=== PATIENT | male | born 1945 | race Caucasian/White ===

== ENCOUNTER → 2016-02-29 | Outpatient (CLI) | payer MEDICARE, OTHER ==
[~2016-02-29] MED LIST: ASP325T; ASP325TEC PO; ATR20T PO; CLOP75TA PO; FENO145T2 PO; FRSM40T PO; METO50TA7 PO; MTF500T PO; POTA10TA6 PO; RAMI10TA PO; RT-ALBUTEROL SULF 2.5 MG/3 ML PRE-MIX VIAL INH ONE; SITA100T PO
--- OUTSIDE RECORDS SUMMARY | 2016-02-29 11:03 | XMS REPORT | Continuity of Care Document ---
Author Author [facility] Organization [facility] Address Unknown Phone Unavailable Care Team Providers Care Fence Post Cutter Name Role Phone PCP Unavailable Source Comments Some departments are not documenting in the electronic medical record. If you do not see the information that you expected, contact Release of Information in the Health Information Management department at [phone] for further assistance in locating additional records.[facility] Active Allergies and Adverse Reactions Not on File Current Medications Not on file Active Problems Not on file Social History Tobacco Use Types Packs/Day Years Used Date Never Assessed Plan of Care Health Maintenance Due Date Last Done Comments Physical (Comprehensive) 1952 Exam Pertussis Vaccine 1957 Tetanus Vaccine 1963 Colorectal Cancer 01/03/1996 Screening Shingles Vaccine 2006 Prevnar/Pneumovax (#1) 2011 Influenza Vaccine 10/25/2015 Results from Last 3 Months Not on file
== END ==
LOC: RT 11:00
PROVIDERS: ATTEND Family Medicine
DX: R06.09 Other forms of dyspnea (principal)
CPT/HCPCS: 94060; 94640; 94726; 94729

== ENCOUNTER → 2016-03-12 | Outpatient (CLI) | payer MEDICARE, OTHER ==
[~2016-03-12] MED LIST changes: -RT-ALBUTEROL SULF 2.5 MG/3 ML PRE-MIX VIAL INH ONE
--- OUTSIDE RECORDS SUMMARY | 2016-03-12 08:47 | XMS REPORT | Continuity of Care Document ---
Author Author [facility] Organization [facility] Address Unknown Phone Unavailable Care Team Providers Care Warehouse Clerk Name Role Phone PCP Unavailable Source Comments Some departments are not documenting in the electronic medical record. If you do not see the information that you expected, contact Release of Information in the Health Information Management department at [phone] for further assistance in locating additional records.[facility] Active Allergies and Adverse Reactions Not [...]
--- NOTE | 2016-03-12 09:37 | Diagnostic Imaging Report ---
PROCEDURE: CT chest without contrast. TECHNIQUE: Multiple noncontiguous 1 mm thick axial images were obtained through the chest without the use of intravenous contrast. This is performed the in the supine inspiration, expiration and prone inspiration based on a HRCT protocol, sampling images in the upper, mid and lower lung zones. Indication: Pulmonary fibrosis. COMPARISON: 08/23/2013. FINDINGS: There are bilateral small pleural effusions. There is minimal amount of fluid also along the major fissures bilaterally. There is minimal septal thickening seen with no significant fibrosis. No honeycombing. No bronchiectasis. No significant consolidation. Expiratory scan demonstrates no evidence of significant air trapping. There are nonspecific minimally prominent mediastinal lymph nodes seen including right paratracheal lymph node measuring 1.3 cm in short axis. There is evidence of prior CABG surgery and slightly prominent cardiac size. The pleural effusions and mild septal thickening could be on the basis of fluid overload or cardiac failure. There is rim calcification seen incompletely visualized within the spleen, could be sequela of an old infection and is unchanged from 2010 exam. The spleen is mildly enlarged measuring 15.5 cm in length. IMPRESSION: Bilateral small pleural effusions and minimal septal thickening mostly in the bases, may relate to volume overload and vascular congestion. No significant consolidation or interstitial lung disease otherwise. Dictated by: Dictated on workstation # [id number]
== END ==
LOC: RAD 08:44
PROVIDERS: ATTEND Internal Medicine Critical Care Medicine
DX: J84.10 Pulmonary fibrosis, unspecified (principal); R06.02 Shortness of breath
CPT/HCPCS: 71250; 94761

== ENCOUNTER 2016-08-29 11:16 | Outpatient (RCR) | payer MEDICARE, OTHER | END 2016-08-31 | disposition home or self-care (01) | LOC: CR 11:16 | PROVIDERS: ATTEND Internal Medicine Critical Care Medicine | DX: Z48.812 Encounter for surgical aftercare following surgery on the circulatory system (principal); Z95.5 Presence of coronary angioplasty implant and graft | CPT/HCPCS: 93798 ==

== ENCOUNTER 2016-09-03 11:08 | Outpatient (RCR) | payer MEDICARE, OTHER | END 2016-10-15 11:00 | disposition home or self-care (01) | LOC: CR 11:08 | PROVIDERS: ATTEND Internal Medicine Critical Care Medicine | DX: Z48.812 Encounter for surgical aftercare following surgery on the circulatory system (principal); Z95.5 Presence of coronary angioplasty implant and graft | CPT/HCPCS: 93798 ==

== ENCOUNTER 2016-09-08 11:30 | Emergency (ER) | payer MEDICARE, OTHER ==
[~2016-09-08] VITALS: Ht 172.7 cm; Wt 87.3 kg
--- NOTE | 2016-09-08 12:02 | ED Fall/Injury ---
General Chief Complaint: Trauma-Non Activation Stated Complaint: BRUISING TO RT RIBS/FALL AT HOME Nursing Triage Note: PT AMBULATED TO ROOM. PT STATES HE FELL AT HIS HOME LAST NIGHT AT 1830 WHILE TRYING TO SIT INTO A CHAIR. PT STATES HE HAD NO LOC. PT STATES HE HIS HIS NOSE AND BRUISED HIS RIBS. THERE IS A BRUISE ON PT ON HIS RIGHT LOWER ABD AT THIS TIME. PT ALSO COMPLAINS OF RIGHT LEG PAIN. NO OTHER ISSUES NOTED AT THIS TIME. Source: patient Exam Limitations: no limitations History of Present Illness Time seen by provider: 12:02 Initial Comments To ER from home with reports of a fall that occurred last night. He was on his front porch when he slipped and fell landing on his right side. He scraped the bridge of his nose which is been persistently oozing since last night despite topical liquid bandage which they purchased at [facility]. No shortness of breath or chest or abdominal pain but he does have bruising to the right side of the abdomen and pain to the anterior right proximal thigh. He is ambulatory, however, he does have to use a cane which is not typical for him. He is on Plavix. He states that he has chronic kidney disease and on the verge of requiring dialysis Location Injury Occurred: HOME Occurred: yesterday Severity: moderate Injuries/Pain Location: chest, abdomen, back Context: unknown Loss of Consciousness: no loss of consciousness Associated Symptoms (Fall): Denies Symptoms Allergies and Home Medications Allergies Coded Allergies: No Known Drug Allergies (Unverified , 12/15/08) Home Medications Aspirin 325 Mg Tabec, 325 MG PO DAILY, (Reported) Atorvastatin 20 Mg Tablet, 20 MG PO HS, (Reported) Clopidogrel Bisulfate 75 Mg Tablet, 75 MG PO DAILY, (Reported) Fenofibrate,Micronized 145 Mg Tablet, 145 MG PO HS, (Reported) Furosemide 40 Mg Tab, 40 MG PO DAILY, (Reported) Metformin Hcl 500 Mg Tablet, 1,000 MG PO BID, (Reported) Metoprolol Succinate 50 Mg Tab, 100 MG PO DAILY, (Reported) Sitagliptin Phosphate 100 Mg Tablet, 100 MG PO DAILY, (Reported) Constitutional: see HPI Eyes: No Symptoms Reported Ears, Nose, Mouth, Throat: no symptoms reported Respiratory: no symptoms reported Cardiovascular: no symptoms reported Genitourinary: no symptoms reported Musculoskeletal: no symptoms reported Skin: see HPI (abrasion to the bridge of the nose) Psychiatric/Neurological: No Symptoms Reported Past Bkfiidl-Rcamfg-Fvxick Hx Patient Social History Alcohol Use: Denies Use Recreational Drug Use: No Smoking Status: Never a Smoker 2nd Hand Smoke Exposure: No Recent Foreign Travel: No Contact w/Someone Who Travel: No Recent Infectious Disease Expo: No Recent Hopitalizations: No Seasonal Allergies Seasonal Allergies: No Respiratory Hx Respiratory Disorders: No Cardiovascular Hx Cardiac Disorders: Yes Neurological Hx Neurological Disorders: No Reproductive System Hx Reproductive Disorders: No Sexually Transmitted Disease: No Genitourinary Hx Genitourinary Disorders: Yes Gastrointestinal Hx Gastrointestinal Disorders: No Musculoskeletal Hx Musculoskeletal Disorders: Yes (LEFT SHOULDER) Endocrine Hx Endocrine Disorders: Yes Endocrine Disorders: Diabetes, Insulin dep HEENT HX ENT Disorders: No Psychosocial Hx Psychiatric Problems: No Blood Transfusions Hx Blood Disorders: No Physical Exam Vital Signs Vital Sign - Last 12Hours 09/08/16 11:40 Temp 98.1 Pulse 66 Resp 16 B/P (MAP) 121/69 Pulse Ox 98 O2 Delivery Room Air Capillary Refill : Less Than 3 Seconds General Appearance: WD/WN, no apparent distress HEENT: PERRL/EOMI, normal ENT inspection Neck: non-tender, full range of motion Cardiovascular: regular rate, rhythm, no murmur Respiratory: normal breath sounds, no respiratory distress, no accessory muscle use Gastrointestinal: normal bowel sounds, non tender, soft, No distended, No guarding, No rebound, No tenderness, other (there is a palm sized area of ecchymosis to the right lateral abdomen and one just superior to this over the lower ribs laterally on the right.However, there is absolutely no abdominal tenderness to palpation. ) Extremities: other (he does have significant tenderness over the anterior proximal right thigh but there is no swelling or ecchymosis.) Neurologic/Psychiatric: alert, normal mood/affect, oriented x 3 Skin: normal color, warm/dry Julio Cesar Coma Score Best Eye Response: (4) Open Spontaneously Best Verbal Response: (5) Oriented Best Motor Response: (6) Obeys Commands [place] Total: 15 Progress/Results/Core Measures Results/Orders Lab Results Laboratory Tests Test 09/08/16 12:03 09/08/16 12:10 Range/Units White Blood Count 5.6 4.3-11.0 10^3/uL Red Blood Count 2.86 L 4.35-5.85 10^6/uL Hemoglobin 8.4 L 13.3-17.7 G/DL Hematocrit 27 L 40-54 % Mean Corpuscular Volume 94 80-99 FL Mean Corpuscular Hemoglobin 29 25-34 PG Mean Corpuscular Hemoglobin Concent 31 L 32-36 G/DL Red Cell Distribution Width 16.1 H 10.0-14.5 % Platelet Count 115 L 130-400 10^3/uL Mean Platelet Volume 9.8 7.4-10.4 FL Neutrophils (%) (Auto) 82 H 42-75 % Lymphocytes (%) (Auto) 11 L 12-44 % Monocytes (%) (Auto) 5 0-12 % Eosinophils (%) (Auto) 1 0-10 % Basophils (%) (Auto) 0 0-10 % Neutrophils # (Auto) 4.6 1.8-7.8 X 10^3 Lymphocytes # (Auto) 0.6 L 1.0-4.0 X 10^3 Monocytes # (Auto) 0.3 0.0-1.0 X 10^3 Eosinophils # (Auto) 0.1 0.0-0.3 10^3/uL Basophils # (Auto) 0.0 0.0-0.1 10^3/uL Sodium Level 136 135-145 MMOL/L Potassium Level 4.4 3.6-5.0 MMOL/L Chloride Level 102 98-107 MMOL/L Carbon Dioxide Level 23 21-32 MMOL/L Anion Gap 11 5-14 MMOL/L Blood Urea Nitrogen 57 H 7-18 MG/DL Creatinine 2.49 H 0.60-1.30 MG/DL Estimat Glomerular Filtration Rate 26 BUN/Creatinine Ratio 23 Glucose Level 228 H 70-105 MG/DL Calcium Level 8.5 8.5-10.1 MG/DL Total Bilirubin 1.0 0.1-1.0 MG/DL Aspartate Amino Transf (AST/SGOT) 19 5-34 U/L Alanine Aminotransferase (ALT/SGPT) 18 0-55 U/L Alkaline Phosphatase 119 40-136 U/L Total Protein 6.8 6.4-8.2 GM/DL Albumin 3.4 3.2-4.5 GM/DL My Orders Orders - KASHIF PORTILLO [employer] Cbc With Automated Diff (09/08/16 11:59) Ct Chest/Abdomen/Pelvis Wo (09/08/16 11:59) Femur, Right, 2 Views (09/08/16 11:59) Ct Head Wo (09/08/16 12:02) Comprehensive Metabolic Panel (09/08/16 12:15) Vital Signs/I&O Vital Sign - Last 12Hours 09/08/16 11:40 Temp 98.1 Pulse 66 Resp 16 B/P (MAP) 121/69 Pulse Ox 98 O2 Delivery Room Air Blood Pressure Mean: 86 Diagnostic Imaging Diagonstic Imaging: CT Comments NAME: LANA BARRAZA [facility] REC#: [id number] PT STATUS: REG ER : 1945 PHYSICIAN: KASHIF PORTILLO APRN ADMIT DATE: 09/08/16/ER Draft Date of Exam:09/08/16 CT CHEST/ABDOMEN/PELVIS WO PROCEDURE: CT chest, abdomen, and pelvis without contrast. TECHNIQUE: Multiple contiguous axial images were obtained through the chest, abdomen, and pelvis without the use of intravenous contrast. INDICATION: Fall. FINDINGS: CT CHEST: There are sternotomy wires seen with a healed sternotomy noted. There are post CABG changes identified. The heart size is moderately enlarged. There is no pericardial effusion. There is no pleural effusion. The thoracic aorta is normal in caliber. There is no mediastinal mass or hematoma. There is a mildly enlarged right paratracheal lymph node measuring 1.2 cm in short axis. Another 1.2 cm infracarinal lymph node is seen. The axilla demonstrates no significantly enlarged lymph nodes on either side. The lungs demonstrate minimal emphysematous changes with no significant consolidation, contusion, or mass. The osseous structures demonstrate mild degenerative changes. CT ABDOMEN AND PELVIS: The spleen is enlarged measuring 15 cm in length. There is a 2.2 cm peripherally calcified cystic lesion, similar to the 2010 exam, compatible with the sequela of an old infection or injury. The liver has a lobulated contour, likely related to chronic underlying liver disease or cirrhosis. Correlate clinically. There are small amounts of ascites. This appears to be of simple fluid density without evidence of hematoma. There is engorgement of the upper abdominal veins. This could be related to early varices secondary to liver failure and also explain the ascites. Alternatively, this could also be secondary to liver failure. The prostate is 5.3 cm in transverse dimension which is mildly enlarged. Mild thickening of the urinary bladder wall could relate to cystitis or BPH. Cholecystectomy clips are seen. The kidneys demonstrate no hydronephrosis. The abdominal aorta is normal in caliber. No periaortic significantly enlarged lymph nodes are seen. The osseous structures demonstrate prominent degenerative changes. IMPRESSION: CT CHEST: The heart is enlarged with likely reactive mild mediastinal lymphadenopathy. No acute process. CT ABDOMEN AND PELVIS: There is small to moderate ascites, splenomegaly, and a lobulated contour of the liver, presumably secondary to chronic hepatitis or cirrhosis. There is also engorgement of the veins in the upper abdomen which might relate to varices or heart failure. The lack of contrast enhancement may decrease the sensitivity of this exam with no obvious traumatic related injury seen, however. Dictated on workstation # [id number] Dict: 09/08/16 1241 Trans: 09/08/16 1259 [id number] Interpreted by: JUDE CALLAHAN MD Electronically signed by: Departure Communication Communication Patient had labs drawn at [facility] lab last week. I did call out there at 1321. The report that the last hemoglobin was drawn on 09/03/16 and was found to be 9.7. Progress Notes 1336- I did discuss the case with trauma surgeon Dr. Parish. He has reviewed the CT scan and agrees this is likely simple fluid as it was present on his previous CT scan in February of this year. The hemoglobin drop is unrelated to trauma and likely from his chronic kidney disease and anemia of chronic disease. Impression Impression: Primary Impression: Abdominal wall contusion Additional Impressions: Chronic kidney disease Anemia Ascites Congestive heart failure Disposition: 01 HOME, SELF-CARE Condition: Stable Departure-Patient Inst. Decision time for Depature: 13:37 Referrals: WILD PARISH MD, DANIEL J MD (PCP/Family) Primary Care Physician Patient Instructions: NO INSTRUCTIONS GIVEN Add. Discharge Instructions: 1. Call Dr. Parish office today to make an appointment to be seen within this week preferably just for follow-up 2. Return to ER for any concerns 3. All discharge instructions reviewed with patient and/or family. Voiced understanding. KASHIF PORTILLO APRN Sep 08, 2016 12:02
[2016-09-08 12:14] LABS: BASOPHILS % (AUTO) 0 % (0-10); EOSINOPHILS # (AUTO) 0.1 10^3/uL (0.0-0.3); EOSINOPHILS % (AUTO) 1 % (0-10); LYMPHOCYTES # (AUTO) 0.6 X 10^3 (1.0-4.0); LYMPHOCYTES % (AUTO) 11 % (12-44); MEAN CORPUSCULAR HEMOGLOBIN 29 PG (25-34); MEAN CORPUSCULAR HGB CONC 31 G/DL (32-36); MEAN CORPUSCULAR VOLUME 94 FL (80-99); MEAN PLATELET VOLUME 9.8 FL (7.4-10.4); MONOCYTES # (AUTO) 0.3 X 10^3 (0.0-1.0); MONOCYTES % (AUTO) 5 % (0-12); NEUTROPHILS # (AUTO) 4.6 X 10^3 (1.8-7.8); NEUTROPHILS % (AUTO) 82 % (42-75); PLATELET COUNT 115 10^3/uL (130-400); RED BLOOD COUNT 2.86 10^6/uL (4.35-5.85); RED CELL DISTRIBUTION WIDTH 16.1 % (10.0-14.5); WHITE BLOOD COUNT 5.6 10^3/uL (4.3-11.0)
--- NOTE | 2016-09-08 12:36 | Diagnostic Imaging Report ---
EXAMINATION: Right femur 1236h. INDICATION: Injury, leg pain. AP and lateral views were obtained. There is no fracture, dislocation or acute bony abnormality evident. There is only mild degenerative disease involving the hip joint. The degenerative changes are similar to the prior abdomen exam of 06/19/09. There are extensive vascular calcifications in the soft tissues about the femur. The soft tissues are otherwise unremarkable. IMPRESSION: 1. There is no evidence for an acute bony abnormality. 2. There are extensive vascular calcifications in the soft tissues of the thigh. Dictated by: Dictated on workstation # [id number]
[2016-09-08 12:44] LABS: ALBUMIN 3.4 GM/DL (3.2-4.5); CALCIUM 8.5 MG/DL (8.5-10.1); CREATININE SERUM 2.49 MG/DL (0.60-1.30); POTASSIUM 4.4 MMOL/L (3.6-5.0); TOTAL PROTEIN 6.8 GM/DL (6.4-8.2)
--- NOTE | 2016-09-08 12:48 | Diagnostic Imaging Report ---
PROCEDURE: CT head without contrast. TECHNIQUE: Multiple contiguous axial images were obtained through the brain without the use of intravenous contrast. INDICATION: Fall. FINDINGS: There is no intracranial hemorrhage. There are periventricular and deep white matter hypodensities compatible with chronic microvascular ischemic changes. Potentially acute component would be better detected with MRI. There is no hydrocephalus. No extra-axial fluid collection is seen. The calvarium, the paranasal sinuses, and orbits appear grossly unremarkable. IMPRESSION: 1. No intracranial hemorrhage. 2. White hypodensities described are likely related to chronic microvascular ischemic changes. If there is suspicion of an acute component, then consider evaluation with MRI. Dictated by: Dictated on workstation # [id number]
--- NOTE | 2016-09-08 12:59 | Diagnostic Imaging Report ---
PROCEDURE: CT chest, abdomen, and pelvis without contrast. TECHNIQUE: Multiple contiguous axial images were obtained through the chest, abdomen, and pelvis without the use of intravenous contrast. INDICATION: Fall. FINDINGS: CT CHEST: There are sternotomy wires seen with a healed sternotomy noted. There are post CABG changes identified. The heart size is moderately enlarged. There is no pericardial effusion. There is no pleural effusion. The thoracic aorta is normal in caliber. There is no mediastinal mass or hematoma. There is a mildly enlarged right paratracheal lymph node measuring 1.2 cm in short axis. Another 1.2 cm infracarinal lymph node is seen. The axilla demonstrates no significantly enlarged lymph nodes on either side. The lungs demonstrate minimal emphysematous changes with no significant consolidation, contusion, or mass. The osseous structures demonstrate mild degenerative changes. CT ABDOMEN AND PELVIS: The spleen is enlarged measuring 15 cm in length. There is a 2.2 cm peripherally calcified cystic lesion, similar to the 2010 exam, compatible with the sequela of an old infection or injury. The liver has a lobulated contour, likely related to chronic underlying liver disease or cirrhosis. Correlate clinically. There are small amounts of ascites. This appears to be of simple fluid density without evidence of hematoma. There is engorgement of the upper abdominal veins. This could be related to early varices secondary to liver failure and also explain the ascites. Alternatively, this could also be secondary to liver failure. The prostate is 5.3 cm in transverse dimension which is mildly enlarged. Mild thickening of the urinary bladder wall could relate to cystitis or BPH. Cholecystectomy clips are seen. The kidneys demonstrate no hydronephrosis. The abdominal aorta is normal in caliber. No periaortic significantly enlarged lymph nodes are seen. The osseous structures demonstrate prominent degenerative changes. IMPRESSION: CT CHEST: The heart is enlarged with likely reactive mild mediastinal lymphadenopathy. No acute process. CT ABDOMEN AND PELVIS: There is small to moderate ascites, splenomegaly, and a lobulated contour of the liver, presumably secondary to chronic hepatitis or cirrhosis. There is also engorgement of the veins in the upper abdomen which might relate to varices or heart failure. The lack of contrast enhancement may decrease the sensitivity of this exam with no obvious traumatic related injury seen, however. Dictated by: Dictated on workstation # [id number]
[2016-09-08 13:47] VITALS: BP 124/72
--- OUTSIDE RECORDS SUMMARY | 2016-09-17 18:11 | XMS REPORT | Clinical Summary ---
Author Author [facility] Organization [facility] Address Unknown Phone Unavailable Care Team Providers Care Web Content Writer Name Role Phone PCP Unavailable Source Comments Some departments are not documenting in the electronic medical record. If you do not see the information that you expected, contact Release of Information in the Health Information Management department at [phone] for further assistance in locating additional records.[facility] Allergies Not on File Current Medications Not on file Active Problems Not on file Social History Tobacco Use Types Packs/Day Years Used Date Never Assessed Sex Assigned at Date Recorded Not on file Last Filed Vital Signs Not on file Plan of Treatment Health Maintenance Due Date Last Done Comments HEPATITIS C SCREENING 1945 PHYSICAL (COMPREHENSIVE) 1952 EXAM PERTUSSIS VACCINE 1957 TETANUS VACCINE 1963 COLORECTAL CANCER 01/03/1996 SCREENING SHINGLES VACCINE 2006 PREVNAR/PNEUMOVAX (#1) 2011 INFLUENZA VACCINE 10/24/2016 Results Not on filefrom Last 3 Months
== END 2016-09-08 13:47 | disposition home or self-care (01) ==
LOC: EDUNIT# 11:30 → ER 11:32
DX: S30.1XXA Contusion of abdominal wall, initial encounter (principal); E11.22 Type 2 diabetes mellitus with diabetic chronic kidney disease; N18.9 Chronic kidney disease, unspecified; R18.8 Other ascites; D64.9 Anemia, unspecified; I50.9 Heart failure, unspecified; Z79.82 Long term (current) use of aspirin; Z79.84 Long term (current) use of oral hypoglycemic drugs; W01.0XXA Fall on same level from slipping, tripping and stumbling without subsequent striking against object, initial encounter
CPT/HCPCS: 36415; 70450; 71250; 73552; 74176; 80053; 85025; 99282

== ENCOUNTER → 2016-09-10 | Outpatient (CLI) | payer MEDICARE, OTHER ==
[2016-09-10 12:41] LABS: BASOPHILS % (AUTO) 0 % (0-10); EOSINOPHILS # (AUTO) 0.1 10^3/uL (0.0-0.3); EOSINOPHILS % (AUTO) 1 % (0-10); LYMPHOCYTES # (AUTO) 0.6 X 10^3 (1.0-4.0); LYMPHOCYTES % (AUTO) 8 % (12-44); MEAN CORPUSCULAR HEMOGLOBIN 30 PG (25-34); MEAN CORPUSCULAR HGB CONC 31 G/DL (32-36); MEAN CORPUSCULAR VOLUME 96 FL (80-99); MEAN PLATELET VOLUME 9.2 FL (7.4-10.4); MONOCYTES # (AUTO) 0.5 X 10^3 (0.0-1.0); MONOCYTES % (AUTO) 8 % (0-12); NEUTROPHILS # (AUTO) 5.9 X 10^3 (1.8-7.8); NEUTROPHILS % (AUTO) 83 % (42-75); PLATELET COUNT 121 10^3/uL (130-400); RED BLOOD COUNT 2.51 10^6/uL (4.35-5.85); RED CELL DISTRIBUTION WIDTH 16.9 % (10.0-14.5); WHITE BLOOD COUNT 7.1 10^3/uL (4.3-11.0)
--- NOTE | 2016-09-10 19:10 | Diagnostic Imaging Report ---
EXAMINATION: Two views of the right hip. INDICATION: Right hip pain. FINDINGS: There is no fracture or dislocation seen. There is significant joint space narrowing in the lateral aspect of the right hip and subchondral sclerosis with mild sparing laterally. Prominent vascular calcifications are seen. IMPRESSION: [id number] right hip osteoarthritis. Dictated by: Dictated on workstation # [id number]
== END ==
LOC: RAD 12:03
PROVIDERS: ATTEND Family Medicine
DX: M16.11 Unilateral primary osteoarthritis, right hip (principal); E11.9 Type 2 diabetes mellitus without complications; D64.9 Anemia, unspecified
CPT/HCPCS: 36415; 73502; 83036; 85025

== ENCOUNTER 2016-11-14 04:18 | Emergency (ER) | payer MEDICARE, OTHER ==
[2016-11-14] VITALS (7 sets, daily range): BP systolic 112–147; BP diastolic 77–91
[~2016-11-14] VITALS: Ht 172.7 cm; Wt 93.0 kg
[2016-11-14] MEDS ORDERED: NS IV 1000 ML 1,000 ML IV ONE (04:35)
[2016-11-14] MEDS ORDERED: GABA-486 (04:37)
[2016-11-14] MEDS ORDERED: DICL100G18 TP (04:37)
[2016-11-14] MEDS ORDERED: FERR325T24 PO (04:37)
[2016-11-14] MEDS ORDERED: POTA20TA8 (04:37)
[2016-11-14] MEDS ORDERED: ALLO100T (04:37)
[2016-11-14] MEDS ORDERED: BUME2TAB3 (04:37)
[2016-11-14] MEDS ORDERED: HYDR-3923 (04:37)
[2016-11-14] MEDS ORDERED: APIX5TAB (04:37)
[2016-11-14] MEDS ORDERED: INSU100I14 (04:37)
[2016-11-14] MEDS ORDERED: SILD20TA14 (04:37)
[2016-11-14] MEDS ORDERED: CARV3.122 (04:37)
[2016-11-14] MEDS ORDERED: SERT50TA9 (04:37)
[2016-11-14] MEDS ORDERED: INSU100I10 (04:37)
[2016-11-14 04:41] LABS: BASOPHILS % (AUTO) 0 % (0-10); EOSINOPHILS # (AUTO) 0.1 10^3/uL (0.0-0.3); EOSINOPHILS % (AUTO) 1 % (0-10); LYMPHOCYTES # (AUTO) 0.8 X 10^3 (1.0-4.0); LYMPHOCYTES % (AUTO) 12 % (12-44); MEAN CORPUSCULAR HEMOGLOBIN 29 PG (25-34); MEAN CORPUSCULAR HGB CONC 31 G/DL (32-36); MEAN CORPUSCULAR VOLUME 97 FL (80-99); MONOCYTES # (AUTO) 0.5 X 10^3 (0.0-1.0); MONOCYTES % (AUTO) 7 % (0-12); NEUTROPHILS # (AUTO) 5.4 X 10^3 (1.8-7.8); NEUTROPHILS % (AUTO) 79 % (42-75); PLATELET COUNT 142 10^3/uL (130-400); RED BLOOD COUNT 2.31 10^6/uL (4.35-5.85); RED CELL DISTRIBUTION WIDTH 18.3 % (10.0-14.5); WHITE BLOOD COUNT 6.8 10^3/uL (4.3-11.0)
--- NOTE | 2016-11-14 04:42 | ED GI ---
General Chief Complaint: Abdominal/GI Problems Stated Complaint: N,V,D Source of Information: Patient History of Present Illness Time Seen By Provider: 04:24 Initial Comments PT ARRIVES VIA EMS FROM HOME C/O BLOODY DIARRHEA X 3 DAYS--STATES "SOMETIMES IT'S JUST DIARRHEA, SOMETIMES IT 'S RED" HAS BEEN INCONTINENT OF STOOL MULTIPLE TIMES HAS BEEN IN CONTINENT OF URINE TONIGHT WELL NO ABDOMINAL PAIN, JUST HAS BEEN BLOATED HAS HAD NAUSEA TONIGHT, AND HAD DRY HEAVES SEVERAL TIMES, AND VOMITED X 1--NO REPORTED HEMATEMESIS PT TAKES BOTH ELIQUIS AND PLAVIX FOR CARDIAC ISSUES--A FIB + CAD--4 VESSEL CABG + 14 STENTS DENIES HISTORY OF GI BLEEDS IN THE PAST PT STATES HE ALWAYS GETS DIZZY WHEN HE STANDS AND WILL PASS OUT IF HE WALKS TOO FAR, AND DOES NOT FEEL LIKE THIS IS ANY WORSE THAN NORMAL EMS GAVE ZOFRAN 4 MG ENROUTE AND NAUSEA IS MUCH BETTER PT HAS CHRONIC ANEMIA AND LAST THURSDAY, HE RECEIVED AN IRON INFUSION, AND HAD ONE 2 WEEKS BEFORE THAT AT [place] [facility]--STATES HIS HGB WAS 9 ON THURSDAY PCP: DR. STRONG PEDIATRIC ONCOLOGY NURSE: CATE ARTHUR CREAM CHEESE MAKER: CATE CARIAS Allergies and Home Medications Allergies Coded Allergies: No Known Drug Allergies (Unverified , 12/15/08) Home Medications Allopurinol 100 Mg Tablet, (Reported) Apixaban 5 Mg Tablet, (Reported) Atorvastatin 20 Mg Tablet, 20 MG PO HS, (Reported) Bumetanide 2 Mg Tablet, (Reported) Carvedilol 3.125 Mg Tablet, (Reported) Clopidogrel Bisulfate 75 Mg Tablet, 75 MG PO DAILY, (Reported) Diclofenac Sodium 100 Gm Gel..gram., 100 GM TP, (Reported) Ferrous Sulfate 325 Mg Tablet, 325 MG PO, (Reported) Gabapentin 100 Mg Capsule, (Reported) Hydralazine HCl 25 Mg Tablet, (Reported) Insulin Aspart 300 Units/3 Ml Solution, (Reported) Insulin Glargine,Hum.rec.anlog 100 Unit/1 Ml Insuln.pen, (Reported) Metoprolol Succinate 50 Mg Tab, 100 MG PO DAILY, (Reported) Potassium Chloride 20 Meq Tab.er.prt, (Reported) Sertraline HCl 50 Mg Tablet, (Reported) Sildenafil Citrate 20 Mg Tablet, (Reported) Review of Systems Constitutional: see HPI EENTM: No Symptoms Reported Respiratory: No Symptoms Reported Cardiovascular: No Symptoms Reported Gastrointestinal: See HPI, Abdomen Distended, Denies Abdominal Pain, Diarrhea, Nausea, Rectal Bleeding, Vomiting Genitourinary: See HPI, Incontinence Musculoskeletal: no symptoms reported Skin: no symptoms reported Psychiatric/Neurological: No Symptoms Reported Endocrine: No Symptoms Reported Hematologic/Lymphatic: See HPI Past Jtwocdi-Ytvaoc-Pcocxw Hx Patient Social History Alcohol Use: Denies Use Recreational Drug Use: No Smoking Status: Never a Smoker 2nd Hand Smoke Exposure: No Recent Foreign Travel: No Contact w/Someone Who Travel: No Recent Hopitalizations: No Seasonal Allergies Seasonal Allergies: No Surgeries History of Surgeries: Yes (4 VESSEL CABG; 14 STENTS; KIDNEY STONE REMOVAL; COLONOSCOPY/EGD) Surgeries: Abdominal, Cardiac, CABG, Coronary Stent, Gallbladder Respiratory History of Respiratory Disorde: Yes (PULMONARY FIBROSIS) Cardiovascular History of Cardiac Disorders: Yes (CHF; 4 VESSEL CABG; 14 STENTS) Cardiac Disorders: Atrial Fibrillation, Chronic Edema/Swelling, Coronary Artery Disease, High Cholesterol, Hypertension Neurological History of Neurological Disord: No Reproductive System Hx Reproductive Disorders: No Sexually Transmitted Disease: No Genitourinary History of Genitourinary Disor: Yes (NO DIALYSIS OF 11/14/16) Genitourinary Disorders: Kidney Stones, Renal Failure Gastrointestinal History of Gastrointestinal Di: No Musculoskeletal History of Musculoskeletal Dis: Yes (LEFT SHOULDER) Endocrine History of Endocrine Disorders: Yes Endocrine Disorders: Diabetes, Insulin dep HEENT History of HEENT Disorders: No Cancer History of Cancer: No Psychosocial History of Psychiatric Problem: No Integumentary History of Skin or Integumenta: No Blood Transfusions History of Blood Disorders: Yes (ANEMIA) Physical Exam Vital Signs VS - Last 72 Hours, by Label 11/14/16 11/14/16 11/14/16 11/14/16 04:30 05:00 05:25 05:45 Temp 96.9 Pulse 68 75 77 73 Resp 28 16 14 21 B/P (MAP) 128/76 129/77 112/79 141/91 Pulse Ox 97 97 98 97 O2 Delivery Room Air Room Air Room Air Room Air 11/14/16 11/14/16 11/14/16 11/14/16 06:00 06:15 06:30 06:48 Temp 96.0 96.1 Pulse 74 74 67 64 Resp 18 13 13 14 B/P (MAP) 147/90 129/86 143/84 Pulse Ox 99 100 100 100 O2 Delivery Nasal Cannula Nasal Cannula Nasal Cannula Nasal Cannula O2 Flow Rate 2.00 2.00 2.00 2.00 Capillary Refill : General Appearance: no apparent distress, obese, other (ODOR OF GI BLEED) HEENT: pale conjunctivae (R), pale conjunctivae (L), other (ORAL MUCOSA MOIST) Neck: normal inspection Respiratory: normal breath sounds, no respiratory distress, no accessory muscle use Cardiovascular: no murmur, irregularly irregular Gastrointestinal: non tender, no pulsatile mass, abnormal bowel sounds ( DECREASED, HIGH-PITCHED), distended (BUT IS SOFT) Extremities: non-tender, no calf tenderness, normal capillary refill, pedal edema (1+ ON RIGHT , 2+ ON LEFT), other (CHRONIC VENOUS STASIS CHANGES TO BILATERAL LOWER LEGS ) Back: no CVA tenderness Neurologic/Psychiatric: home energy consultant II-XII nml as tested, no motor/sensory deficits, alert, normal mood/affect, oriented x 3 Skin: warm/dry, pallor Progress/Results/Core Measures Results/Orders Lab Results Laboratory Tests Test 11/14/16 04:26 11/14/16 07:45 Range/Units White Blood Count 6.8 4.3-11.0 10^3/uL Red Blood Count 2.31 L 4.35-5.85 10^6/uL Hemoglobin 6.8 *L 13.3-17.7 G/DL Hematocrit 22 L 40-54 % Mean Corpuscular Volume 97 80-99 FL Mean Corpuscular Hemoglobin 29 25-34 PG Mean Corpuscular Hemoglobin Concent 31 L 32-36 G/DL Red Cell Distribution Width 18.3 H 10.0-14.5 % Platelet Count 142 130-400 10^3/uL Mean Platelet Volume 9.0 7.4-10.4 FL Neutrophils (%) (Auto) 79 H 42-75 % Lymphocytes (%) (Auto) 12 12-44 % Monocytes (%) (Auto) 7 0-12 % Eosinophils (%) (Auto) 1 0-10 % Basophils (%) (Auto) 0 0-10 % Neutrophils # (Auto) 5.4 1.8-7.8 X 10^3 Lymphocytes # (Auto) 0.8 L 1.0-4.0 X 10^3 Monocytes # (Auto) 0.5 0.0-1.0 X 10^3 Eosinophils # (Auto) 0.1 0.0-0.3 10^3/uL Basophils # (Auto) 0.0 0.0-0.1 10^3/uL Prothrombin Time 27.8 H 12.2-14.7 SEC INR Comment 2.6 H 0.8-1.4 Activated Partial Thromboplast Time 44 H 24-35 SEC Sodium Level 140 135-145 MMOL/L Potassium Level 4.4 3.6-5.0 MMOL/L Chloride Level 106 98-107 MMOL/L Carbon Dioxide Level 22 21-32 MMOL/L Anion Gap 12 5-14 MMOL/L Blood Urea Nitrogen 66 H 7-18 MG/DL Creatinine 3.02 H 0.60-1.30 MG/DL Estimat Glomerular Filtration Rate 21 BUN/Creatinine Ratio 22 Glucose Level 228 H 70-105 MG/DL Calcium Level 8.6 8.5-10.1 MG/DL Magnesium Level 2.7 H 1.8-2.4 MG/DL Total Bilirubin 0.9 0.1-1.0 MG/DL Aspartate Amino Transf (AST/SGOT) 17 5-34 U/L Alanine Aminotransferase (ALT/SGPT) 15 0-55 U/L Alkaline Phosphatase 120 40-136 U/L Total Protein 6.9 6.4-8.2 GM/DL Albumin 3.4 3.2-4.5 GM/DL Amylase Level 36 25-125 U/L Urine Color YELLOW Urine Clarity CLEAR Urine pH 5 5-9 Urine Specific Weldon 1.015 L 1.016-1.022 Urine Protein 3+ H NEGATIVE Urine Glucose (UA) NEGATIVE NEGATIVE Urine Ketones NEGATIVE NEGATIVE Urine Nitrite NEGATIVE NEGATIVE Urine Bilirubin NEGATIVE NEGATIVE Urine Urobilinogen NORMAL NORMAL MG/DL Urine Leukocyte Esterase NEGATIVE NEGATIVE Urine RBC (Auto) NEGATIVE NEGATIVE Urine RBC NONE /HPF Urine WBC NONE /HPF Urine Squamous Epithelial Cells 10-25 H /HPF Urine Crystals NONE /LPF Urine Bacteria TRACE /HPF Urine Casts NONE /LPF Urine Mucus NEGATIVE /LPF Urine Culture Indicated NO Micro Results Microbiology 11/14/16 C. difficile GDH Antigen & Toxins - Final, Complete My Orders Orders - ITZEL GRISSOM DO Saline Lock/Iv-Start (11/14/16 04:35) Monitor-Rhythm Ecg Trace Only (11/14/16 04:35) Amylase (11/14/16 04:35) Cbc With Automated Diff (11/14/16 04:35) Comprehensive Metabolic Panel (11/14/16 04:35) Magnesium (11/14/16 04:35) Protime With Inr (11/14/16 04:35) Partial Thromboplastin Time (11/14/16 04:35) Ua Culture If Indicated (11/14/16 04:35) Type And Screen (11/14/16 04:35) Ct Abdomen/Pelvis Wo (11/14/16 04:35) Saline Lock/Iv-Start (11/14/16 04:35) Ns Iv 1000 Ml (Sodium Chloride 0.9%) (11/14/16 04:35) Pantoprazole Injection (Protonix Injecti (11/14/16 04:45) Red Cells Leukocytes Reduced (11/14/16 04:42) Ondansetron Injection (Zofran Injectio (11/14/16 04:53) Ondansetron Injection (Zofran Injectio (11/14/16 05:15) Scopolamine Patch (Transderm-Scop Patch) (11/14/16 05:15) Scopolamine Patch (Transderm-Scop Patch) (11/14/16 04:55) Stool Culture (11/14/16 05:09) C Difficile Ag + Toxin A/B. (11/14/16 05:09) Promethazine Injection (Phenergan Injec (11/14/16 05:30) Diphenhydramine Injection (Benadryl Inje (11/14/16 05:30) Diphenhydramine Injection (Benadryl Inje (11/14/16 05:13) Promethazine Injection (Phenergan Injec (11/14/16 05:13) Ns Iv 500 Ml (Sodium Chloride 0.9%) (11/14/16 05:27) Medications Given in ED Vital Signs/I&O Vital Sign - Last 12Hours 11/14/16 11/14/16 11/14/16 11/14/16 04:30 05:00 05:25 05:45 Temp 96.9 Pulse 68 75 77 73 Resp 28 16 14 21 B/P (MAP) 128/76 129/77 112/79 141/91 Pulse Ox 97 97 98 97 O2 Delivery Room Air Room Air Room Air Room Air 11/14/16 11/14/16 11/14/16 11/14/16 06:00 06:15 06:30 06:48 Temp 96.0 96.1 Pulse 74 74 67 64 Resp 18 13 13 14 B/P (MAP) 147/90 129/86 143/84 Pulse Ox 99 100 100 100 O2 Delivery Nasal Cannula Nasal Cannula Nasal Cannula Nasal Cannula O2 Flow Rate 2.00 2.00 2.00 2.00 Progress Note : Progress Note SHORTLY AFTER ARRIVAL, PT IS INCONTINENT OF GROSSLY BLOODY STOOL--AND BEGAN TO HAVE NAUSEA AND DRY HEAVES DRY HEAVES CONTINUED--GIVEN ADDITIONAL ZOFRAN, PHENERGAN, BENADRYL, AND SCOPOLAMINE PATCH--WITH SOME IMPROVEMENT PROTONIX GIVEN WELL BLOOD TRANSFUSION STARTED IN ER VITALS REMAINED STABLE, WITH BP > 110 FOR ENTIRE ER STAY. HEART RATE REMAINED IN 70'S ( IS ON COREG ) Diagnostic Imaging Comments CT ABDOMEN/PELVIS--MILD CARDIOMEGALY, LOWE DENSITY BLOOD POOL ISCHEMIA SEEN WITH ANEMIA, CIRRHOTIC CHANGES OF LIVER, MILD SPLENOMEGALY, MODERATELY LARGE AMOUNT OF ASCITES, MESENTERIC CHANGES C/W CIRRHOSIS AND EDEMA; NO BOWEL OBSTRUCTION OR PNEUMOPERITONEUM, NO EVIDENCE OF RENAL CALCULI OR HYDRONEPHROSIS- -PER [facility] VIA FAX @ 1133 Reviewed: Reviewed by Me Departure Communication (Admissions) Progress Notes 0525--CALLED [facility] CALL, PT'S PREFERENCE 0531--SPOKE WITH DR. MICHAEL KIRBY, HOSPITALIST, ACCEPTS PT FOR ADMIT. 0610--CARE TURNED OVER TO DR. POLLOCK. TRANSFER PENDING. HAVE BED ASSIGNMENT, WAITING ON EMS TRANSPORT. Impression Impression: Primary Impression: Lower GI bleeding Additional Impressions: Intractable nausea and vomiting ANTICOAGULATION THERAPY HX OF CAD Chronic atrial fibrillation ACUTE BLOOD LOSS ANEMIA ON CHRONIC ANEMIA Chronic renal failure Disposition: XFER SHT-TRM HOSP Condition: Stable Departure-Patient Inst. Referrals: CHARLENE STRONG MD (PCP/Family) Primary Care Physician ITZEL GRISSOM DO Nov 14, 2016 04:42
[2016-11-14] MEDS ORDERED: PANTOPRAZOLE 40 MG/10 ML (PROTONIX) VIAL IV ONE (04:45)
[2016-11-14] MEDS ORDERED: ONDANSETRON 4 MG/2 ML (SDV) Z0FRAN ONE (04:53)
[2016-11-14 04:54] LABS: INR 2.6 (0.8-1.4); PROTHROMBIN TIME PATIENT 27.8 SEC (12.2-14.7)
[2016-11-14] MEDS ORDERED: SCOPOLAMINE 1.5 MG (TRANSDERM-SCOP) PATCH ONE (04:55)
[2016-11-14 05:02] LABS: ALBUMIN 3.4 GM/DL (3.2-4.5); BILIRUBIN,TOTAL 0.9 MG/DL (0.1-1.0); CALCIUM 8.6 MG/DL (8.5-10.1); CREATININE SERUM 3.02 MG/DL (0.60-1.30); MAGNESIUM 2.7 MG/DL (1.8-2.4); POTASSIUM 4.4 MMOL/L (3.6-5.0); TOTAL PROTEIN 6.9 GM/DL (6.4-8.2)
[2016-11-14] MEDS ORDERED: diphenhydrAMINE 50 MG/ML INJ (BENADRYL) ONE (05:13)
[2016-11-14] MEDS ORDERED: PROMETHAZINE INJ 25 MG/ML (PHENERGAN) AMP ONE (05:13)
[2016-11-14] MEDS ORDERED: SCOPOLAMINE 1.5 MG (TRANSDERM-SCOP) PATCH TD ONE (05:15)
[2016-11-14] MEDS ORDERED: ONDANSETRON 4 MG/2 ML (SDV) Z0FRAN IVP ONE (05:15)
[2016-11-14] MEDS ORDERED: NS IV 500 ML 500 ML ONE (05:27)
[2016-11-14] MEDS ORDERED: PROMETHAZINE INJ 25 MG/ML (PHENERGAN) AMP IVP ONE (05:30)
[2016-11-14] MEDS ORDERED: diphenhydrAMINE 50 MG/ML INJ (BENADRYL) IVP ONE (05:30)
--- NOTE | 2016-11-14 07:38 | Diagnostic Imaging Report ---
PROCEDURE: CT abdomen and pelvis without contrast. TECHNIQUE: Multiple contiguous axial images were obtained through the abdomen and pelvis without the use of intravenous contrast. INDICATION: Nausea, vomiting, diarrhea and abdominal pain. COMPARISON: 09/08/2016. FINDINGS: The lung bases appear clear. There is a moderate to large amounts of ascites increased from 09/08/2016 exam. The liver has a lobulated contour compatible with cirrhosis. The spleen is enlarged. It is 14.1 cm in AP dimension. 2.5 cm peripherally calcified lesion is again seen in the posterior aspect of the spleen likely sequelae of prior injury or infection. Cholecystectomy clips are seen. There is mesenteric and omental stranding noted probably related to edema from liver disease. No focal fluid collection is identified. The pancreas and adrenal glands appear unremarkable. The kidneys demonstrate no stones or hydronephrosis. The abdominal aorta is normal in caliber. No para-aortic significantly enlarged lymph nodes seen. No bowel obstruction. The osseous structures demonstrate mild degenerative changes. IMPRESSION: 1. Findings suggestive of cirrhosis. There is splenomegaly and [id number] amounts of ascites seen. 2. Diffuse mesenteric and omental stranding is likely secondary to edema with no definite evidence of focal inflammatory process or fluid collection. Dictated by: Dictated on workstation # [id number]
[2016-11-14 08:45] LABS: BILIRUBIN,URINE NEGATIVE (NEGATIVE); KETONES,URINE NEGATIVE (NEGATIVE); LEUKOCYTE ESTERASE ,URINE NEGATIVE (NEGATIVE); NITRITE,URINE NEGATIVE (NEGATIVE); PH,URINE 5 (5-9); PROTEIN,URINE 3+ (NEGATIVE); UROBILINOGEN,URINE NORMAL (NORMAL)
== END 2016-11-14 06:52 | disposition short-term general hospital (02) ==
LOC: EDUNIT# 04:18 → ER 04:21
DX: K92.2 Gastrointestinal hemorrhage, unspecified (principal); D50.0 Iron deficiency anemia secondary to blood loss (chronic); I25.10 Atherosclerotic heart disease of native coronary artery without angina pectoris; I48.91 Unspecified atrial fibrillation; E78.00 Pure hypercholesterolemia, unspecified; E11.22 Type 2 diabetes mellitus with diabetic chronic kidney disease; I13.0 Hypertensive heart and chronic kidney disease with heart failure and stage 1 through stage 4 chronic kidney disease, or unspecified chronic kidney disease; I50.9 Heart failure, unspecified; N18.6 End stage renal disease; Z95.5 Presence of coronary angioplasty implant and graft; Z95.1 Presence of aortocoronary bypass graft; Z79.4 Long term (current) use of insulin; Z87.442 Personal history of urinary calculi; Z79.01 Long term (current) use of anticoagulants; Z79.02 Long term (current) use of antithrombotics/antiplatelets
CPT/HCPCS: 36415; 74176; 80053; 81000; 82150; 83735; 85025; 85610; 85730; 86850; 86900; 86901; 86920; 87045; 87046; 87324; 87449; 93041; 96361; 96374; 96375

== ENCOUNTER 2017-01-22 21:34 | Emergency (ER) | payer MEDICARE, OTHER ==
[~2017-01-22] VITALS: Ht 172.7 cm; Wt 93.0 kg
[~2017-01-22 21:34] MED LIST changes: +ALLO100T; +APIX5TAB; +BUME2TAB3; +CARV3.122; +DICL100G18 TP; +FERR325T24 PO; +GABA-486; +HYDR-3923; +INSU100I10; +INSU100I14; +POTA20TA8; +SERT50TA9; +SILD20TA14
[2017-01-22] MEDS ORDERED: LEVOFLOXACIN 500 MG TAB (LEVAQUIN) PO STA (22:40)
[2017-01-22] MEDS ORDERED: DEXAMETHASONE 10 MG/ML (DECADRON) 1 ML VIAL IM ONE (22:45)
[2017-01-22] MEDS ORDERED: RT-ALBUTEROL/IPRATROPIUM 3 ML (DUONEB) VIAL INH ONE (22:45)
[2017-01-22] MEDS ORDERED: LEVO250T11 PO (23:20)
--- NOTE | 2017-01-22 23:21 | ED Cough/URI ---
General Chief Complaint: Cough/Cold/Flu Symptoms Stated Complaint: COUGH Nursing Triage Note: Patient reports coughing x 2 days History of Present Illness Time seen by provider: 22:30 Initial Comments 72-year-old male reports 2 days of dry cough. He has long-standing history of chronic kidney disease and cirrhosis. He sees specialist at [facility]. He was evaluated today by his mess cook, who prescribed Tessalon Perles. He reports continued coughing. He denies fever at home. Timing/Duration: yesterday Severity/Quality: mild, dry cough Prior Episodes/Possible Cause: occasional episodes Associated Symptoms: cough, shortness of breath Allergies and Home Medications Allergies Coded Allergies: No Known Drug Allergies (Unverified , 12/15/08) Home Medications Allopurinol 100 Mg Tablet, (Reported) Apixaban 5 Mg Tablet, (Reported) Atorvastatin 20 Mg Tablet, 20 MG PO HS, (Reported) Bumetanide 2 Mg Tablet, (Reported) Carvedilol 3.125 Mg Tablet, (Reported) Clopidogrel Bisulfate 75 Mg Tablet, 75 MG PO DAILY, (Reported) Diclofenac Sodium 100 Gm Gel..gram., 100 GM TP, (Reported) Ferrous Sulfate 325 Mg Tablet, 325 MG PO, (Reported) Gabapentin 100 Mg Capsule, (Reported) Hydralazine HCl 25 Mg Tablet, (Reported) Insulin Aspart 300 Units/3 Ml Solution, (Reported) Insulin Glargine,Hum.rec.anlog 100 Unit/1 Ml Insuln.pen, (Reported) Levofloxacin 250 Mg Tablet, 250 MG PO Q48H, #3 Ref 0 Prescribed by: RASHEED TERRY on 01/22/17 2320 Metoprolol Succinate 50 Mg Tab, 100 MG PO DAILY, (Reported) Potassium Chloride 20 Meq Tab.er.prt, (Reported) Sertraline HCl 50 Mg Tablet, (Reported) Sildenafil Citrate 20 Mg Tablet, (Reported) Constitutional: no symptoms reported, see HPI Respiratory: see HPI, cough, wheezing All Other Systems Reviewed Negative Unless Noted: Yes Past Nabykes-Pzvurr-Jivvjp Hx Patient Social History Alcohol Use: Denies Use Recreational Drug Use: No Smoking Status: Never a Smoker 2nd Hand Smoke Exposure: No Recent Foreign Travel: No Contact w/Someone Who Travel: No Recent Infectious Disease Expo: No Recent Hopitalizations: No Seasonal Allergies Seasonal Allergies: No Surgeries History of Surgeries: Yes (4 VESSEL CABG; 14 STENTS; KIDNEY STONE REMOVAL; COLONOSCOPY/EGD) Surgeries: Abdominal, Cardiac, CABG, Coronary Stent, Gallbladder Respiratory History of Respiratory Disorde: Yes (PULMONARY FIBROSIS) Cardiovascular History of Cardiac Disorders: Yes (CHF; 4 VESSEL CABG; 14 STENTS) Cardiac Disorders: Atrial Fibrillation, Chronic Edema/Swelling, Coronary Artery Disease, High Cholesterol, Hypertension Neurological History of Neurological Disord: No Reproductive System Hx Reproductive Disorders: No Sexually Transmitted Disease: No Genitourinary History of Genitourinary Disor: Yes (NO DIALYSIS OF 11/14/16) Genitourinary Disorders: Kidney Stones, Renal Failure Gastrointestinal History of Gastrointestinal Di: Yes Gastrointestinal Disorders: Gall Bladder Disease Musculoskeletal History of Musculoskeletal Dis: Yes (LEFT SHOULDER) Endocrine History of Endocrine Disorders: Yes Endocrine Disorders: Diabetes, Insulin dep HEENT History of HEENT Disorders: No Cancer History of Cancer: No Psychosocial History of Psychiatric Problem: No Integumentary History of Skin or Integumenta: No Blood Transfusions History of Blood Disorders: Yes (ANEMIA) Reviewed Nursing Assessment Reviewed/Agree w Nursing PMH: Yes Physical Exam Vital Signs Vital Sign - Last 12Hours 01/22/17 01/22/17 22:10 22:53 Temp 98.6 Pulse 74 Resp 18 B/P (MAP) 106/54 (71) Pulse Ox 94 O2 Delivery Room Air Capillary Refill : Less Than 3 Seconds General Appearance: WD/WN, no apparent distress Eyes: Bilateral Eye Normal Inspection, Bilateral Eye PERRL, Bilateral Eye EOMI HEENT: PERRL/EOMI, normal ENT inspection, TMs normal, pharynx normal Neck: non-tender, full range of motion, supple Respiratory: chest non-tender, no respiratory distress, no accessory muscle use , No crackles, No rales, No rhonchi, wheezing (mild upper lobes bilaterally) Cardiovascular: normal peripheral pulses, regular rate, rhythm, other (2+ pitting edema left lower extremity, no edema right lower extremity) Gastrointestinal: normal bowel sounds, non tender, soft, distended Neurologic/Psychiatric: no motor/sensory deficits, alert, normal mood/affect, oriented x 3 Skin: normal color, warm/dry Lymphatic: no adenopathy Progress/Results/Core Measures Suspected Sepsis Recent Fever Within 48 Hours: No Infection Criteria Present: None New/Unexplained Altered Menta: No Sepsis Screen: No Definite Risk Sepsis Diagnosis: SIRS Temperature:98.6 Pulse: 74 Respiratory Rate: 18 Blood Pressure 106 /54 Mean: 71 Results/Orders My Orders Orders - RASHEED TERRY AYSHA Albuterol/Ipra Inhalation Soln (Duoneb I (01/22/17 22:45) Svn Sm Volume Nebulizer Rt-Rfs (01/22/17 22:38) Rt Request For Service (01/22/17 22:38) Dexamethasone Injection (Decadron Inject (01/22/17 22:45) Levofloxacin Tablet (Levaquin Tablet) (01/22/17 22:40) Medications Given in ED Current Medications Medications Dose Ordered Sig/Bobo Route Start Time Stop Time Status Last Admin Dose Admin Albuterol/ Ipratropium 3 ml ONCE ONCE INH 01/22/17 22:45 01/22/17 22:46 DC 01/22/17 22:50 3 ML Dexamethasone Sodium Phosphate 10 mg ONCE ONCE IM 01/22/17 22:45 01/22/17 22:46 DC 01/22/17 23:21 10 MG Vital Signs/I&O Vital Sign - Last 12Hours 01/22/17 01/22/17 22:10 22:53 Temp 98.6 Pulse 74 Resp 18 B/P (MAP) 106/54 (71) Pulse Ox 94 91 O2 Delivery Room Air Capillary Refill : Less Than 3 Seconds Blood Pressure Mean: 71 Progress Note : Time: 22:30 Progress Note Initial evaluation completed, recommended DuoNeb treatment and reevaluation. 2245 trace improvement in wheezing after breathing treatment. Will follow renal dosing, 500 mg by mouth now with Levaquin, followed by 250 mg every 48 hours 3 additional doses. 2300 discharge planning reviewed with the patient and his family, all questions answered and return precautions discussed. Departure Impression Impression: Primary Impression: Bronchitis Disposition: HOME, SELF-CARE Condition: Improved Departure-Patient Inst. Decision time for Depature: 23:10 Referrals: CHARLENE STRONG MD (PCP/Family) Primary Care Physician Patient Instructions: Acute Bronchitis, Adult (DC), Cough, Adult (DC) Add. Discharge Instructions: Alternate ibuprofen 600 mg and Tylenol 650 mg every 4 hours for fever or pain. Take antibiotic as prescribed every 48 hours. Follow-up with Dr. Perez tomorrow if symptoms are not improving. Start Mucinex one tablet twice daily with full glass of water. Take prescribed amount of water as directed by mess cook daily. Return to emergency department if difficulty breathing, fever greater than 101 , new problems or concerns. All discharge instructions reviewed with patient and/or family. Voiced understanding. Scripts Levofloxacin (Levaquin) 250 Mg Tablet 250 MG PO Q48H, #3 TAB 0 Refills Prov: RASHEED TERRY 01/22/17 Copy Copies To 1: CHARLENE STRONG MD, AMY ARNP Jan 22, 2017 23:21
[2017-01-22 23:25] VITALS: BP 106/54
== END 2017-01-22 23:25 | disposition home or self-care (01) ==
LOC: EDUNIT# 21:34 → ER 21:36
DX: J40 Bronchitis, not specified as acute or chronic (principal); I48.91 Unspecified atrial fibrillation; I25.10 Atherosclerotic heart disease of native coronary artery without angina pectoris; E78.00 Pure hypercholesterolemia, unspecified; E11.22 Type 2 diabetes mellitus with diabetic chronic kidney disease; I12.9 Hypertensive chronic kidney disease with stage 1 through stage 4 chronic kidney disease, or unspecified chronic kidney disease; N18.9 Chronic kidney disease, unspecified; Z79.01 Long term (current) use of anticoagulants; Z79.4 Long term (current) use of insulin; Z95.5 Presence of coronary angioplasty implant and graft; Z87.442 Personal history of urinary calculi; Z95.1 Presence of aortocoronary bypass graft; Z87.09 Personal history of other diseases of the respiratory system
CPT/HCPCS: 94640; 99284

== ENCOUNTER 2017-01-27 14:01 | Outpatient (RCR) | payer MEDICARE, OTHER ==
[~2017-01-27 14:01] MED LIST changes: +LEVO250T11 PO
== END 2017-04-27 | disposition home or self-care (01) ==
LOC: LAB 14:01
PROVIDERS: ATTEND Family Medicine
DX: R19.7 Diarrhea, unspecified (principal)
CPT/HCPCS: 87324; 87449

== ENCOUNTER → 2019-06-14 | Outpatient (CLI) | payer MEDICARE, OTHER ==
[~2019-06-14] MED LIST changes: -BUME2TAB3; +BUME2TAB7
--- NOTE | 2019-06-14 14:42 | Diagnostic Imaging Report ---
INDICATION: Low back pain, degenerative disc disease. COMPARISON: None. FINDINGS: Three views of the lumbar column demonstrate normal alignment. There is no subluxation or fracture. Moderate diffuse degenerative disc disease and facet degenerative arthropathy are seen. This is most pronounced at L4-L5 and L5-S1. There is a round calcification at the level of L1, compatible with a benign calcified splenic cyst. Advanced atherosclerotic disease is present. IMPRESSION: 1. No traumatic malalignment or fracture. 2. Moderate diffuse degenerative changes. 3. Atherosclerosis. Dictated by: Dictated on workstation # [id number]
== END ==
LOC: RAD 13:53
PROVIDERS: ATTEND Family Medicine
DX: M47.817 Spondylosis without myelopathy or radiculopathy, lumbosacral region (principal); I70.90 Unspecified atherosclerosis
CPT/HCPCS: 72100

== ENCOUNTER → 2020-09-19 | Outpatient (CLI) | payer MEDICARE, OTHER ==
[~2020-09-19] MED LIST changes: +SERT-413; -SERT50TA9
== END ==
LOC: WOUNDCARE 13:19
PROVIDERS: ATTEND Surgery
DX: L02.32 Furuncle of buttock (principal); L98.492 Non-pressure chronic ulcer of skin of other sites with fat layer exposed; E11.622 Type 2 diabetes mellitus with other skin ulcer; E11.65 Type 2 diabetes mellitus with hyperglycemia
CPT/HCPCS: A6266; G0463; 99212

== ENCOUNTER → 2020-09-25 | Outpatient (CLI) | payer MEDICARE, OTHER | LOC: WOUNDCARE 12:19 | PROVIDERS: ATTEND Surgery | DX: L02.32 Furuncle of buttock (principal); L98.492 Non-pressure chronic ulcer of skin of other sites with fat layer exposed; E11.622 Type 2 diabetes mellitus with other skin ulcer; E11.65 Type 2 diabetes mellitus with hyperglycemia; E11.52 Type 2 diabetes mellitus with diabetic peripheral angiopathy with gangrene | CPT/HCPCS: 99212 ==

== ENCOUNTER → 2020-10-03 | Outpatient (CLI) | payer MEDICARE, OTHER | LOC: WOUNDCARE 14:56 | PROVIDERS: ATTEND Surgery | DX: L97.521 Non-pressure chronic ulcer of other part of left foot limited to breakdown of skin (principal); E11.621 Type 2 diabetes mellitus with foot ulcer; I70.245 Atherosclerosis of native arteries of left leg with ulceration of other part of foot; L98.492 Non-pressure chronic ulcer of skin of other sites with fat layer exposed; L02.32 Furuncle of buttock; E11.622 Type 2 diabetes mellitus with other skin ulcer; E11.65 Type 2 diabetes mellitus with hyperglycemia; E11.52 Type 2 diabetes mellitus with diabetic peripheral angiopathy with gangrene | CPT/HCPCS: A6197; G0463; 99213 ==

== ENCOUNTER → 2020-10-10 | Outpatient (CLI) | payer MEDICARE, OTHER | LOC: WOUNDCARE 14:20 | PROVIDERS: ATTEND Surgery | DX: L97.322 Non-pressure chronic ulcer of left ankle with fat layer exposed (principal); E11.622 Type 2 diabetes mellitus with other skin ulcer; I87.332 Chronic venous hypertension (idiopathic) with ulcer and inflammation of left lower extremity; L97.521 Non-pressure chronic ulcer of other part of left foot limited to breakdown of skin; E11.621 Type 2 diabetes mellitus with foot ulcer; I70.248 Atherosclerosis of native arteries of left leg with ulceration of other part of lower leg; E11.65 Type 2 diabetes mellitus with hyperglycemia; E11.52 Type 2 diabetes mellitus with diabetic peripheral angiopathy with gangrene | CPT/HCPCS: 99213 ==

== ENCOUNTER → 2020-10-24 | Outpatient (CLI) | payer MEDICARE, OTHER | LOC: WOUNDCARE 15:15 | PROVIDERS: ATTEND Surgery | DX: L97.321 Non-pressure chronic ulcer of left ankle limited to breakdown of skin (principal); E11.622 Type 2 diabetes mellitus with other skin ulcer; I87.332 Chronic venous hypertension (idiopathic) with ulcer and inflammation of left lower extremity; I70.245 Atherosclerosis of native arteries of left leg with ulceration of other part of foot; E11.65 Type 2 diabetes mellitus with hyperglycemia; E11.52 Type 2 diabetes mellitus with diabetic peripheral angiopathy with gangrene | CPT/HCPCS: 99213 ==

== ENCOUNTER → 2020-10-31 | Outpatient (CLI) | payer MEDICARE, OTHER | LOC: WOUNDCARE 12:44 | PROVIDERS: ATTEND Surgery | DX: L97.321 Non-pressure chronic ulcer of left ankle limited to breakdown of skin (principal); E11.622 Type 2 diabetes mellitus with other skin ulcer; I87.332 Chronic venous hypertension (idiopathic) with ulcer and inflammation of left lower extremity; I70.245 Atherosclerosis of native arteries of left leg with ulceration of other part of foot; E11.65 Type 2 diabetes mellitus with hyperglycemia | CPT/HCPCS: 99212 ==

== ENCOUNTER → 2020-12-21 | Outpatient (CLI) | payer MEDICARE, OTHER | LOC: WOUNDCARE 09:04 | PROVIDERS: ATTEND Family Medicine | DX: E11.621 Type 2 diabetes mellitus with foot ulcer (principal); E11.622 Type 2 diabetes mellitus with other skin ulcer; E11.65 Type 2 diabetes mellitus with hyperglycemia; E11.43 Type 2 diabetes mellitus with diabetic autonomic (poly)neuropathy; I70.234 Atherosclerosis of native arteries of right leg with ulceration of heel and midfoot; I70.242 Atherosclerosis of native arteries of left leg with ulceration of calf; N18.6 End stage renal disease | CPT/HCPCS: A6197; G0463; 99214 ==

== ENCOUNTER → 2020-12-25 | Outpatient (CLI) | payer MEDICARE, OTHER | LOC: WOUNDCARE 13:28 | PROVIDERS: ATTEND Family Medicine | DX: E11.621 Type 2 diabetes mellitus with foot ulcer (principal); E11.622 Type 2 diabetes mellitus with other skin ulcer; E11.65 Type 2 diabetes mellitus with hyperglycemia; E11.43 Type 2 diabetes mellitus with diabetic autonomic (poly)neuropathy; I70.234 Atherosclerosis of native arteries of right leg with ulceration of heel and midfoot; I70.242 Atherosclerosis of native arteries of left leg with ulceration of calf; E11.22 Type 2 diabetes mellitus with diabetic chronic kidney disease; N18.6 End stage renal disease; L97.412 Non-pressure chronic ulcer of right heel and midfoot with fat layer exposed; L97.222 Non-pressure chronic ulcer of left calf with fat layer exposed; E11.52 Type 2 diabetes mellitus with diabetic peripheral angiopathy with gangrene | CPT/HCPCS: 99213 ==

== ENCOUNTER → 2021-01-01 | Outpatient (CLI) | payer MEDICARE, OTHER | LOC: WOUNDCARE 13:23 | PROVIDERS: ATTEND Family Medicine | DX: E11.621 Type 2 diabetes mellitus with foot ulcer (principal); E11.622 Type 2 diabetes mellitus with other skin ulcer; E11.65 Type 2 diabetes mellitus with hyperglycemia; E11.52 Type 2 diabetes mellitus with diabetic peripheral angiopathy with gangrene; E11.42 Type 2 diabetes mellitus with diabetic polyneuropathy; I70.234 Atherosclerosis of native arteries of right leg with ulceration of heel and midfoot; I70.242 Atherosclerosis of native arteries of left leg with ulceration of calf; E11.22 Type 2 diabetes mellitus with diabetic chronic kidney disease; N18.6 End stage renal disease; L97.412 Non-pressure chronic ulcer of right heel and midfoot with fat layer exposed; L97.222 Non-pressure chronic ulcer of left calf with fat layer exposed | CPT/HCPCS: 99213 ==

== ENCOUNTER → 2021-01-10 | Outpatient (CLI) | payer MEDICARE, OTHER | LOC: WOUNDCARE 13:20 | PROVIDERS: ATTEND Family Medicine | DX: E11.621 Type 2 diabetes mellitus with foot ulcer (principal); E11.622 Type 2 diabetes mellitus with other skin ulcer; E11.65 Type 2 diabetes mellitus with hyperglycemia; E11.42 Type 2 diabetes mellitus with diabetic polyneuropathy; E11.52 Type 2 diabetes mellitus with diabetic peripheral angiopathy with gangrene; I70.234 Atherosclerosis of native arteries of right leg with ulceration of heel and midfoot; I70.232 Atherosclerosis of native arteries of right leg with ulceration of calf; E11.22 Type 2 diabetes mellitus with diabetic chronic kidney disease; N18.6 End stage renal disease; L97.412 Non-pressure chronic ulcer of right heel and midfoot with fat layer exposed; L97.222 Non-pressure chronic ulcer of left calf with fat layer exposed | CPT/HCPCS: A6197; G0463; 99213 ==

== ENCOUNTER → 2021-02-14 | Outpatient (CLI) | payer MEDICARE, OTHER ==
[~2021-02-14] MED LIST changes: +POTA-169; -POTA20TA8
== END ==
LOC: WOUNDCARE 12:47
PROVIDERS: ATTEND Family Medicine
DX: E11.621 Type 2 diabetes mellitus with foot ulcer (principal); E11.622 Type 2 diabetes mellitus with other skin ulcer; E11.65 Type 2 diabetes mellitus with hyperglycemia; E11.43 Type 2 diabetes mellitus with diabetic autonomic (poly)neuropathy; E11.52 Type 2 diabetes mellitus with diabetic peripheral angiopathy with gangrene; I70.234 Atherosclerosis of native arteries of right leg with ulceration of heel and midfoot; I70.242 Atherosclerosis of native arteries of left leg with ulceration of calf; E11.22 Type 2 diabetes mellitus with diabetic chronic kidney disease; N18.6 End stage renal disease; L97.412 Non-pressure chronic ulcer of right heel and midfoot with fat layer exposed; L97.222 Non-pressure chronic ulcer of left calf with fat layer exposed; S90.829A Blister (nonthermal), unspecified foot, initial encounter; I95.3 Hypotension of hemodialysis; I48.11 Longstanding persistent atrial fibrillation; J96.11 Chronic respiratory failure with hypoxia
CPT/HCPCS: A6197; G0463; 99214

== ENCOUNTER → 2021-02-21 | Outpatient (CLI) | payer MEDICARE, OTHER ==
[~2021-02-21] MED LIST changes: +POLY17PO6 PO
== END ==
LOC: WOUNDCARE 14:41
PROVIDERS: ATTEND Family Medicine
DX: E11.621 Type 2 diabetes mellitus with foot ulcer (principal); E11.52 Type 2 diabetes mellitus with diabetic peripheral angiopathy with gangrene; E11.622 Type 2 diabetes mellitus with other skin ulcer; E11.65 Type 2 diabetes mellitus with hyperglycemia; E11.43 Type 2 diabetes mellitus with diabetic autonomic (poly)neuropathy; I70.234 Atherosclerosis of native arteries of right leg with ulceration of heel and midfoot; I70.242 Atherosclerosis of native arteries of left leg with ulceration of calf; E11.22 Type 2 diabetes mellitus with diabetic chronic kidney disease; N18.6 End stage renal disease; L97.412 Non-pressure chronic ulcer of right heel and midfoot with fat layer exposed; L97.222 Non-pressure chronic ulcer of left calf with fat layer exposed; S90.829A Blister (nonthermal), unspecified foot, initial encounter; I95.3 Hypotension of hemodialysis; I48.11 Longstanding persistent atrial fibrillation; L03.116 Cellulitis of left lower limb
CPT/HCPCS: 99214

== ENCOUNTER 2021-02-26 13:37 | Emergency (ER) | payer MEDICARE, OTHER ==
[~2021-02-26] VITALS: Ht 172 cm; Wt 83.0 kg
[~2021-02-26 13:37] MED LIST changes: -POLY17PO6 PO
--- NOTE | 2021-02-26 14:07 | ED GI ---
General Chief Complaint: Abdominal/GI Problems Stated Complaint: CONSTIPATION Source of Information: Patient Exam Limitations: No Limitations (KASHIF PORTILLO APRN) History of Present Illness Date Seen by Provider: Feb 26, 2021 Time Seen by Provider: 14:05 Initial Comments To ER by private vehicle from [facility] with reports of rectal pain and constipation with no bowel movement for 6 days. They offered him an enema but he states that he has been asking them for something for 5 days to treat this and when they offered him an enema he tells me that he said "screw you Ill go to ER". No fevers or abdominal pain Timing/Duration: 1-2 Days Severity/Quality: Moderate Location: Other (Rectal) Radiation: No Radiation Activities at Onset: None (KASHIF PORTILLO APRN) Allergies and Home Medications Allergies Coded Allergies: No Known Drug Allergies (Unverified , 12/15/08) Patient Home Medication List Home Medication List Reviewed: Yes (KASHIF PORTILLO APRN) Allopurinol (Allopurinol) 100 Mg Tablet, (Reported) Entered as Reported by: GLADYS BASURTO on 11/14/16436 Apixaban (Eliquis) 5 Mg Tablet, (Reported) Entered as Reported by: GLADYS BASURTO on 11/14/16436 Atorvastatin (Lipitor 20MG) 20 Mg Tablet, 20 MG PO HS, (Reported) Entered as Reported by: LEONEL REILLY on 12/15/08 0851 Bumetanide (Bumetanide) 2 Mg Tablet, (Reported) Entered as Reported by: GLADYS BASURTO on 11/14/16436 Carvedilol (Carvedilol) 3.125 Mg Tablet, (Reported) Entered as Reported by: GLADYS BASURTO on 11/14/16436 Clopidogrel Bisulfate (Plavix 75 Mg) 75 Mg Tablet, 75 MG PO DAILY, (Reported) Entered as Reported by: LEONEL REILLY on 12/15/08 0852 Diclofenac Sodium (Voltaren) 100 Gm Gel..gram., 100 GM TP, (Reported) Entered as Reported by: GLADYS BASURTO on 11/14/16436 Ferrous Sulfate (Ferosul) 325 Mg Tablet, 325 MG PO, (Reported) Entered as Reported by: GLADYS BASURTO on 11/14/16436 Gabapentin (Gabapentin) 100 Mg Capsule, (Reported) Entered as Reported by: GLADYS BASURTO on 11/14/16436 Hydralazine HCl (Hydralazine HCl) 25 Mg Tablet, (Reported) Entered as Reported by: GLADYS BASURTO on 11/14/16436 Insulin Aspart (Novolog Flexpen) 300 Units/3 Ml Solution, (Reported) Entered as Reported by: GLADYS BASURTO on 11/14/16436 Insulin Glargine,Hum.rec.anlog (Lantus Solostar) 100 Unit/1 Ml Insuln.pen, (Reported) Entered as Reported by: GLADYS BASURTO on 11/14/16436 Levofloxacin (Levaquin) 250 Mg Tablet, 250 MG PO Q48H Prescribed by: RASHEED TERRY on 01/22/17 2320 Metoprolol Succinate (Toprol Xl) 50 Mg Tab, 100 MG PO DAILY, (Reported) Entered as Reported by: LEONEL REILLY on 12/15/08 0852 Polyethylene Glycol 3350 (Miralax) 17 Gm Powd.pack, 17 GM PO BID Prescribed by: KASHIF PORTILLO on 02/26/21 1551 Potassium Chloride (Klor-Con M20) 20 Meq Tab.er.prt, (Reported) Entered as Reported by: GLADYS BASURTO on 11/14/16436 Sertraline HCl (Sertraline HCl) 50 Mg Tablet, (Reported) Entered as Reported by: GLADYS BASURTO on 11/14/16436 Sildenafil Citrate (Sildenafil) 20 Mg Tablet, (Reported) Entered as Reported by: GLADYS BASURTO on 11/14/16436 Review of Systems Review of Systems Constitutional: see HPI EENTM: No Symptoms Reported Respiratory: No Symptoms Reported Cardiovascular: No Symptoms Reported Gastrointestinal: See HPI, Constipated Genitourinary: No Symptoms Reported Musculoskeletal: no symptoms reported Skin: no symptoms reported Psychiatric/Neurological: No Symptoms Reported Endocrine: No Symptoms Reported Hematologic/Lymphatic: No Symptoms Reported (KASHIF PORTILLO APRN) Past Yluwcrd-Exvkca-Uqbooj Hx Seasonal Allergies Seasonal Allergies: No (KASHIF PORTILLO APRN) Past Medical History Surgeries: Yes (4 VESSEL CABG; 14 STENTS; KIDNEY STONE REMOVAL; COLONOSCOPY/EGD) Abdominal, Cardiac, CABG, Coronary Stent, Gallbladder Respiratory: Yes (PULMONARY FIBROSIS) Cardiac: Yes (CHF; 4 VESSEL CABG; 14 STENTS) Atrial Fibrillation, Chronic Edema/Swelling, Coronary Artery Disease, High Cholesterol, Hypertension Neurological: No Reproductive Disorders: No Sexually Transmitted Disease: No Genitourinary: Yes (NO DIALYSIS OF 11/14/16) Kidney Stones, Renal Failure Gastrointestinal: Yes Gall Bladder Disease Musculoskeletal: Yes (LEFT SHOULDER) Endocrine: Yes Diabetes, Insulin dep HEENT: No Cancer: No Psychosocial: No Integumentary: No Blood Disorders: Yes (ANEMIA) (KASHIF PORTILLO APRN) Physical Exam Vital Signs Vital Signs - First Documented 02/26/21 13:55 Temp 35.9 Pulse 83 Resp 18 B/P (MAP) 109/65 (80) Pulse Ox 100 O2 Delivery Room Air (PROMISE COHEN MD) Vital Signs Capillary Refill : (KASHIF PORTILLO APRN) Height/Weight/BMI Height: 5'8.00" Weight: 205lbs. 0oz. 92.503064mz; BMI Method:Stated General Appearance: WD/WN, no apparent distress, other (Quite an unpleasant demeanor) Respiratory: no respiratory distress, no accessory muscle use Gastrointestinal: normal bowel sounds, soft, other (Abdomen is round soft nontender. Rectal exam done with Kathleen CHOI at the bedside reveals a palpable stool ball. Patient did not tolerate digital disimpaction.) Extremities: normal range of motion, non-tender Neurologic/Psychiatric: alert, normal mood/affect, oriented x 3 Skin: normal color, warm/dry (KASHIF PORTILLO APRN) Progress/Results/Core Measures Results/Orders Medications Given in ED Current Medications Medications Dose Ordered Sig/Bobo Route Start Time Stop Time Status Last Admin Dose Admin Lidocaine HCl 10 ml ONCE ONCE TOP 02/26/21 14:15 02/26/21 14:16 DC 02/26/21 15:21 10 ML Mineral Oil 1 ea ONCE ONCE RI 02/26/21 14:15 02/26/21 14:16 DC 02/26/21 14:10 1 EA Sodium Biphosphate/ Sodium Phosphate 1 ea ONCE ONCE RI 02/26/21 14:15 02/26/21 14:16 DC 02/26/21 15:21 1 EA (PROMISE COHEN MD) Vital Signs/I&O 02/26/21 02/26/21 13:55 16:07 Temp 35.9 35.9 Pulse 83 85 Resp 18 18 B/P (MAP) 109/65 (80) 137/85 Pulse Ox 100 100 O2 Delivery Room Air Room Air (PROMISE COHEN MD) Departure Communication (Admissions) 1601 after a mineral oil enema and then a fleets enema he was assisted to the bedside commode and had a large bowel movement. [facility] will be in route to pick him up. (KASHIF PORTILLO APRN) Impression Primary Impression: Fecal impaction in rectum Disposition: 01 HOME, SELF-CARE Condition: Stable Departure-Patient Inst. Decision time for Depature: 14:07 (KASHIF PORTILLO APRN) Referrals: CHARLENE STRONG MD (PCP/Family) Primary Care Physician Patient Instructions: Fecal Impaction (DC) Add. Discharge Instructions: . Increase water intake. Use MiraLAX 1 packet twice a day for 7 days. All discharge instructions reviewed with patient and/or family. Voiced understanding. Scripts Polyethylene Glycol 3350 (Miralax) 17 Gm Powd.pack 17 GM PO BID, #14 EACH Prov: KASHIF PORTILLO APRN 02/26/21 ATTENDING PHYSICIAN NOTE: I was physically present as attending physician in the emergency department during the care of this patient, but I was not directly involved in the decision making or delivery of care for this patient. (PROMISE COHEN MD) KASHIF PORTILLO APRN Feb 26, 2021 14:07 PROMISE COHEN MD Feb 26, 2021 17:38
[2021-02-26] MEDS: LIDOCAINE UROJET 2% GEL 10 ML PKG TOP ONE ×2 (14:10→15:21)
[2021-02-26] MEDS ORDERED: MINERAL OIL ENEMA 133 ML BTL PR ONE (14:15)
[2021-02-26] MEDS ORDERED: FLEET ENEMA ADULT 1 EA BTL PR ONE (14:15)
[2021-02-26] MEDS ORDERED: POLY17PO6 PO (15:51)
[2021-02-26 16:07] VITALS: BP 137/85
== END 2021-02-26 16:21 | disposition home or self-care (01) ==
LOC: EDUNIT# 13:37 → ER 13:38
DX: K56.41 Fecal impaction (principal); I11.0 Hypertensive heart disease with heart failure; I50.9 Heart failure, unspecified; E11.9 Type 2 diabetes mellitus without complications; E78.00 Pure hypercholesterolemia, unspecified; I25.10 Atherosclerotic heart disease of native coronary artery without angina pectoris; I48.91 Unspecified atrial fibrillation; Z79.4 Long term (current) use of insulin; Z79.01 Long term (current) use of anticoagulants; Z79.899 Other long term (current) drug therapy
CPT/HCPCS: 99281

== ENCOUNTER → 2021-02-28 | Outpatient (CLI) | payer MEDICARE, OTHER ==
[~2021-02-28] MED LIST changes: +POLY17PO6 PO
== END ==
LOC: WOUNDCARE 12:36
PROVIDERS: ATTEND Family Medicine
DX: E11.621 Type 2 diabetes mellitus with foot ulcer (principal); E11.622 Type 2 diabetes mellitus with other skin ulcer; E11.65 Type 2 diabetes mellitus with hyperglycemia; E11.43 Type 2 diabetes mellitus with diabetic autonomic (poly)neuropathy; I70.234 Atherosclerosis of native arteries of right leg with ulceration of heel and midfoot; I70.242 Atherosclerosis of native arteries of left leg with ulceration of calf; E11.22 Type 2 diabetes mellitus with diabetic chronic kidney disease; N18.6 End stage renal disease; L97.412 Non-pressure chronic ulcer of right heel and midfoot with fat layer exposed; S90.829A Blister (nonthermal), unspecified foot, initial encounter; I95.3 Hypotension of hemodialysis; I48.11 Longstanding persistent atrial fibrillation; L03.116 Cellulitis of left lower limb; E11.52 Type 2 diabetes mellitus with diabetic peripheral angiopathy with gangrene
CPT/HCPCS: A6197; G0463; 99214

== ENCOUNTER → 2021-03-07 | Outpatient (CLI) | payer MEDICARE, OTHER | LOC: WOUNDCARE 13:46 | PROVIDERS: ATTEND Family Medicine | DX: E11.621 Type 2 diabetes mellitus with foot ulcer (principal); E11.622 Type 2 diabetes mellitus with other skin ulcer; E11.65 Type 2 diabetes mellitus with hyperglycemia; E11.43 Type 2 diabetes mellitus with diabetic autonomic (poly)neuropathy; I70.234 Atherosclerosis of native arteries of right leg with ulceration of heel and midfoot; I70.242 Atherosclerosis of native arteries of left leg with ulceration of calf; E11.22 Type 2 diabetes mellitus with diabetic chronic kidney disease; N18.6 End stage renal disease; L97.412 Non-pressure chronic ulcer of right heel and midfoot with fat layer exposed; S90.829A Blister (nonthermal), unspecified foot, initial encounter; I95.3 Hypotension of hemodialysis; I48.11 Longstanding persistent atrial fibrillation; L97.222 Non-pressure chronic ulcer of left calf with fat layer exposed; E11.52 Type 2 diabetes mellitus with diabetic peripheral angiopathy with gangrene | CPT/HCPCS: 11042; G0463 ==

== ENCOUNTER → 2021-03-21 | Outpatient (CLI) | payer MEDICARE, OTHER | LOC: WOUNDCARE 12:57 | PROVIDERS: ATTEND Family Medicine | DX: E11.621 Type 2 diabetes mellitus with foot ulcer (principal); E11.622 Type 2 diabetes mellitus with other skin ulcer; E11.65 Type 2 diabetes mellitus with hyperglycemia; E11.43 Type 2 diabetes mellitus with diabetic autonomic (poly)neuropathy; I70.234 Atherosclerosis of native arteries of right leg with ulceration of heel and midfoot; I70.242 Atherosclerosis of native arteries of left leg with ulceration of calf; E11.52 Type 2 diabetes mellitus with diabetic peripheral angiopathy with gangrene; N18.6 End stage renal disease; L97.412 Non-pressure chronic ulcer of right heel and midfoot with fat layer exposed; S90.829A Blister (nonthermal), unspecified foot, initial encounter; I95.3 Hypotension of hemodialysis; L97.222 Non-pressure chronic ulcer of left calf with fat layer exposed; I48.11 Longstanding persistent atrial fibrillation | CPT/HCPCS: 99214 ==

== ENCOUNTER 2021-03-29 12:24 | Emergency (ER) | payer MEDICARE, OTHER ==
[~2021-03-29] VITALS: Ht 172.7 cm; Wt 83.0 kg
--- NOTE | 2021-03-29 12:39 | ED General ---
General Stated Complaint: SOB Source of Information: Patient, EMS Exam Limitations: No Limitations History of Present Illness Date Seen by Provider: Mar 29, 2021 Time Seen by Provider: 12:37 Initial Comments To ER by EMS from outpatient dialysis center with reports of weakness, shortness of breath low blood pressure that started 1 hour into his hemodialysis treatment. He gets hemodialysis Thursday and had a full course on Thursday of this week. He states that he had a little nausea this morning and took a nausea pill for it and the nausea has been gone. He denies any fevers chills or cough. He states that he has had one Covid vaccine. He was recently admitted to [facility] in [place] for lower extremity angioplasty. He was there for 10 days and then transferred to [facility] for assisted which is where he resides at currently. At this point he just reports that he feels "bad all over". He denies any pain shortness of breath or nausea. His oxygen 99% on room air. Timing/Duration: 4-6 Hours Severity: Moderate Associated Systoms: Weakness Allergies and Home Medications Allergies Coded Allergies: No Known Drug Allergies (Unverified , 12/15/08) Patient Home Medication List Home Medication List Reviewed: Yes Allopurinol (Allopurinol) 100 Mg Tablet, (Reported) Entered as Reported by: GLADYS BASURTO on 11/14/16436 Apixaban (Eliquis) 5 Mg Tablet, (Reported) Entered as Reported by: GLADYS BASURTO on 11/14/16436 Atorvastatin (Lipitor 20MG) 20 Mg Tablet, 20 MG PO HS, (Reported) Entered as Reported by: LEONEL REILLY on 12/15/08 0851 Bumetanide (Bumetanide) 2 Mg Tablet, (Reported) Entered as Reported by: GLADYS BASURTO on 11/14/16436 Carvedilol (Carvedilol) 3.125 Mg Tablet, (Reported) Entered as Reported by: GLADYS BASURTO on 11/14/16436 Clopidogrel Bisulfate (Plavix 75 Mg) 75 Mg Tablet, 75 MG PO DAILY, (Reported) Entered as Reported by: LEONEL REILLY on 12/15/08 0852 Diclofenac Sodium (Voltaren) 100 Gm Gel..gram., 100 GM TP, (Reported) Entered as Reported by: GLADYS BASURTO on 11/14/16436 Ferrous Sulfate (Ferosul) 325 Mg Tablet, 325 MG PO, (Reported) Entered as Reported by: GLADYS BASURTO on 11/14/16436 Gabapentin (Gabapentin) 100 Mg Capsule, (Reported) Entered as Reported by: GLADYS BASURTO on 11/14/16436 Hydralazine HCl (Hydralazine HCl) 25 Mg Tablet, (Reported) Entered as Reported by: GLADYS BASURTO on 11/14/16436 Insulin Aspart (Novolog Flexpen) 300 Units/3 Ml Solution, (Reported) Entered as Reported by: GLADYS BASURTO on 11/14/16436 Insulin Glargine,Hum.rec.anlog (Lantus Solostar) 100 Unit/1 Ml Insuln.pen, (Repo rted) Entered as Reported by: GLADYS BASURTO on 11/14/16436 Levofloxacin (Levaquin) 250 Mg Tablet, 250 MG PO Q48H Prescribed by: RASHEED TERRY on 01/22/17 2320 Metoprolol Succinate (Toprol Xl) 50 Mg Tab, 100 MG PO DAILY, (Reported) Entered as Reported by: LEONEL REILLY on 12/15/08 0852 Polyethylene Glycol 3350 (Miralax) 17 Gm Powd.pack, 17 GM PO BID Prescribed by: KASHIF PORTILLO on 02/26/21 1551 Potassium Chloride (Klor-Con M20) 20 Meq Tab.er.prt, (Reported) Entered as Reported by: GLADYS BASURTO on 11/14/16436 Sertraline HCl (Sertraline HCl) 50 Mg Tablet, (Reported) Entered as Reported by: GLADYS BASURTO on 11/14/16436 Sildenafil Citrate (Sildenafil) 20 Mg Tablet, (Reported) Entered as Reported by: GLADYS BASURTO on 11/14/16436 Review of Systems Review of Systems Constitutional: see HPI, malaise, weakness EENTM: see HPI Respiratory: no symptoms reported Cardiovascular: no symptoms reported Genitourinary: no symptoms reported Musculoskeletal: no symptoms reported Skin: no symptoms reported Psychiatric/Neurological: No Symptoms Reported Hematologic/Lymphatic: No Symptoms Reported Past Acqhgzm-Ncgspo-Sdptiq Hx Seasonal Allergies Seasonal Allergies: No Past Medical History Surgeries: Yes (4 VESSEL CABG; 14 STENTS; KIDNEY STONE REMOVAL; COLONOSCOPY/EGD) Abdominal, Cardiac, CABG, Coronary Stent, Gallbladder Respiratory: Yes (PULMONARY FIBROSIS) Cardiac: Yes (CHF; 4 VESSEL CABG; 14 STENTS) Atrial Fibrillation, Chronic Edema/Swelling, Coronary Artery Disease, High Cholesterol, Hypertension Neurological: No Reproductive Disorders: No Sexually Transmitted Disease: No Genitourinary: Yes (NO DIALYSIS OF 11/14/16) Kidney Stones, Renal Failure Gastrointestinal: Yes Gall Bladder Disease Musculoskeletal: Yes (LEFT SHOULDER) Endocrine: Yes Diabetes, Insulin dep HEENT: No Cancer: No Psychosocial: No Integumentary: No Blood Disorders: Yes (ANEMIA) Physical Exam Vital Signs Vital Signs - First Documented 03/29/21 03/29/21 12:28 13:49 Temp 36.1 Pulse 82 Resp 18 B/P (MAP) 122/88 (99) Pulse Ox 99 O2 Delivery Room Air Capillary Refill : Height, Weight, BMI Height: 5'8.00" Weight: 205lbs. 0oz. 92.099977va; 28.00 BMI Method:Stated General Appearance: WD/WN, Chronically ill, Other (100% on room air. Anasarca noted. Heart rate A. fib in the 80s) Eyes: Bilateral Eye Normal Inspection, Bilateral Eye PERRL Respiratory: No Accessory Muscle Use, No Respiratory Distress, Other (Left basilar crackles) Cardiovascular: Normal Peripheral Pulses, Irregularly Irregular Gastrointestinal: Normal Bowel Sounds, Non Tender, Soft Extremity: Normal Capillary Refill, Normal Inspection Neurologic/Psychiatric: Alert, Oriented x3 Skin: Normal Color, Warm/Dry Progress/Results/Core Measures Suspected Sepsis SIRS Temperature: Pulse: Respiratory Rate: Laboratory Tests 03/29/21 12:32: White Blood Count 7.5 Blood Pressure / Mean: Laboratory Tests 03/29/21 12:32: Creatinine 2.17H, Platelet Count 151, Total Bilirubin 1.3H 03/29/21 12:42: INR Comment 1.6H Results/Orders Lab Results Laboratory Tests Test 03/29/21 12:32 03/29/21 12:42 Range/Units White Blood Count 7.5 4.3-11.0 10^3/uL Red Blood Count 4.00 L 4.30-5.52 10^6/uL Hemoglobin 12.5 L 13.3-17.7 g/dL Hematocrit 39 L 40-54 % Mean Corpuscular Volume 99 80-99 fL Mean Corpuscular Hemoglobin 31 25-34 pg Mean Corpuscular Hemoglobin Concent 32 32-36 g/dL Red Cell Distribution Width 16.8 H 10.0-14.5 % Platelet Count 151 130-400 10^3/uL Mean Platelet Volume 9.1 9.0-12.2 fL Immature Granulocyte % (Auto) 0 % Neutrophils (%) (Auto) 76 H 42-75 % Lymphocytes (%) (Auto) 14 12-44 % Monocytes (%) (Auto) 6 0-12 % Eosinophils (%) (Auto) 2 0-10 % Basophils (%) (Auto) 1 0-10 % Neutrophils # (Auto) 5.7 1.8-7.8 10^3/uL Lymphocytes # (Auto) 1.1 1.0-4.0 10^3/uL Monocytes # (Auto) 0.5 0.0-1.0 10^3/uL Eosinophils # (Auto) 0.2 0.0-0.3 10^3/uL Basophils # (Auto) 0.1 0.0-0.1 10^3/uL Immature Granulocyte # (Auto) 0.0 0.0-0.1 10^3/uL Sodium Level 136 135-145 MMOL/L Potassium Level 3.6 3.6-5.0 MMOL/L Chloride Level 102 98-107 MMOL/L Carbon Dioxide Level 24 21-32 MMOL/L Anion Gap 10 5-14 MMOL/L Blood Urea Nitrogen 16 7-18 MG/DL Creatinine 2.17 H 0.60-1.30 MG/DL Estimat Glomerular Filtration Rate 31 BUN/Creatinine Ratio 7 Glucose Level 106 H 70-105 MG/DL Calcium Level 7.8 L 8.5-10.1 MG/DL Corrected Calcium 9.1 8.5-10.1 MG/DL Magnesium Level 2.0 1.6-2.4 MG/DL Total Bilirubin 1.3 H 0.1-1.0 MG/DL Aspartate Amino Transf (AST/SGOT) 23 5-34 U/L Alanine Aminotransferase (ALT/SGPT) 18 0-55 U/L Alkaline Phosphatase 139 H 40-136 U/L Total Protein 5.4 L 6.4-8.2 GM/DL Albumin 2.4 L 3.2-4.5 GM/DL Procalcitonin 0.30 H <0.10 NG/ML Prothrombin Time 19.2 H 12.2-14.7 SEC INR Comment 1.6 H 0.8-1.4 Activated Partial Thromboplast Time 100 H 24-35 SEC Influenza Type A Antigen NEGATIVE NEGATIVE Influenza Type B Antigen NEGATIVE NEGATIVE SARS-CoV-2 RNA (RT-PCR) Not Detected Negative My Orders Orders - KASHIF PORTILLO APRN Cbc With Automated Diff (03/29/21 12:35) Comprehensive Metabolic Panel (03/29/21 12:35) Chest 1 View, Ap/Pa Only (03/29/21 12:35) Procalcitonin (Pct) (03/29/21 12:35) Ekg Tracing (03/29/21 12:35) Ed Iv/Invasive Line Start (03/29/21 12:35) Protime With Inr (03/29/21 12:35) Partial Thromboplastin Time (03/29/21 12:35) Magnesium (03/29/21 12:35) Covid 19 Inhouse Test (03/29/21 12:35) Coronavirus Sars-Cov-2 So 2018 (03/29/21 12:35) Influenza A & B Antigens (03/29/21 12:42) Vital Signs/I&O 03/29/21 03/29/21 12:28 13:49 Temp 36.1 Pulse 82 80 Resp 18 18 B/P (MAP) 122/88 (99) 112/62 Pulse Ox 99 O2 Delivery Room Air Capillary Refill : Departure Communication (Admissions) NAME: LANA BARRAZA [facility] REC#: [id number] PT STATUS: REG ER : 1945 PHYSICIAN: KASHIF PORTILLO APRN ADMIT DATE: 03/29/21/ER Draft Date of Exam:03/29/21 CHEST 1 VIEW, AP/PA ONLY INDICATION: On dialysis and not feeling well. TIME OF EXAM: 1:18 PM Correlation is made with prior chest from 05/12/2010. The heart is enlarged. There are changes of median sternotomy. Cardiac defibrillator is in place. Right-sided dialysis catheter has a tip overlying the right atrium. Lungs appear to be fairly clear apart from some questionable infiltrate or atelectasis in the left base which is obscured by the enlarged heart. There is no evidence of failure. No effusion or pneumothorax is seen. IMPRESSION: Cardiomegaly and status post CABG. There is some questionable infiltrate or atelectasis left lung base. Study is otherwise unremarkable. Dictated on workstation # [id number] Dict: 03/29/21 1328 Trans: 03/29/21 1331 CVB [id number] Interpreted by: AR AVILA MD Electronically signed by: Impression Primary Impression: LLL pneumonia Disposition: HOME, SELF-CARE Condition: Stable Departure-Patient Inst. Decision time for Depature: 13:58 Referrals: CHARLENE STRONG MD (PCP/Family) Primary Care Physician Patient Instructions: Pneumonia, Adult (DC) Add. Discharge Instructions: Antibiotic as directed return to ER for any concerns follow-up with your doctor next week for continued dialysis as scheduled. Scripts Cefdinir (Cefdinir) 300 Mg Capsule 300 MG PO DAILY, #7 CAP Prov: KASHIF PORTILLO APRN 03/29/21 KASHIF PORTILLO APRN Mar 29, 2021 12:39
[2021-03-29 12:44] LABS: BASOPHILS # (AUTO) 0.1 10^3/uL (0.0-0.1); BASOPHILS % (AUTO) 1 % (0-10); EOSINOPHILS # (AUTO) 0.2 10^3/uL (0.0-0.3); EOSINOPHILS % (AUTO) 2 % (0-10); HEMATOCRIT 39 % (40-54); HEMOGLOBIN 12.5 g/dL (13.3-17.7); LYMPHOCYTES # (AUTO) 1.1 10^3/uL (1.0-4.0); LYMPHOCYTES % (AUTO) 14 % (12-44); MEAN CORPUSCULAR HEMOGLOBIN 31 pg (25-34); MEAN CORPUSCULAR HGB CONC 32 g/dL (32-36); MEAN CORPUSCULAR VOLUME 99 fL (80-99); MEAN PLATELET VOLUME 9.1 fL (9.0-12.2); MONOCYTES # (AUTO) 0.5 10^3/uL (0.0-1.0); MONOCYTES % (AUTO) 6 % (0-12); NEUTROPHILS # (AUTO) 5.7 10^3/uL (1.8-7.8); NEUTROPHILS % (AUTO) 76 % (42-75); PLATELET COUNT 151 10^3/uL (130-400); WHITE BLOOD COUNT 7.5 10^3/uL (4.3-11.0)
[2021-03-29 12:52] LABS: ALBUMIN 2.4 GM/DL (3.2-4.5)
[2021-03-29 12:53] LABS: POTASSIUM 3.6 MMOL/L (3.6-5.0)
[2021-03-29 12:54] LABS: CALCIUM 7.8 MG/DL (8.5-10.1)
[2021-03-29 12:55] LABS: TOTAL PROTEIN 5.4 GM/DL (6.4-8.2)
[2021-03-29 12:57] LABS: BILIRUBIN,TOTAL 1.3 MG/DL (0.1-1.0)
[2021-03-29 12:59] LABS: CREATININE SERUM 2.17 MG/DL (0.60-1.30)
[2021-03-29 13:19] LABS: INR 1.6 (0.8-1.4); PROTHROMBIN TIME PATIENT 19.2 SEC (12.2-14.7)
--- NOTE | 2021-03-29 13:32 | Diagnostic Imaging Report ---
INDICATION: On dialysis and not feeling well. TIME OF EXAM: 1:18 PM Correlation is made with prior chest from 05/12/2010. The heart is enlarged. There are changes of median sternotomy. Cardiac defibrillator is in place. Right-sided dialysis catheter has a tip overlying the right atrium. Lungs appear to be fairly clear apart from some questionable infiltrate or atelectasis in the left base which is obscured by the enlarged heart. There is no evidence of failure. No effusion or pneumothorax is seen. IMPRESSION: Cardiomegaly and status post CABG. There is some questionable infiltrate or atelectasis left lung base. Study is otherwise unremarkable. Dictated by: Dictated on workstation # [id number]
[2021-03-29] MEDS ORDERED: CEFD300C3 PO (13:59)
[2021-03-29] MEDS ORDERED: CEFDINIR 300 MG (OMNICEF) CAP PO ONE (14:00)
[2021-03-29 14:04] VITALS: BP 113/71
== END 2021-03-29 14:04 ==
LOC: EDUNIT# 12:24 → ER 12:26
DX: J18.1 Lobar pneumonia, unspecified organism (principal); I11.0 Hypertensive heart disease with heart failure; I50.9 Heart failure, unspecified; E11.9 Type 2 diabetes mellitus without complications; I48.91 Unspecified atrial fibrillation; E78.00 Pure hypercholesterolemia, unspecified; I25.10 Atherosclerotic heart disease of native coronary artery without angina pectoris; Z20.822 Contact with and (suspected) exposure to COVID-19; Z79.4 Long term (current) use of insulin; Z79.01 Long term (current) use of anticoagulants; Z79.899 Other long term (current) drug therapy
CPT/HCPCS: 36415; 71045; 80053; 83735; 84145; 85025; 85610; 85730; 87636; 87804; 93005

== ENCOUNTER → 2021-04-02 | Outpatient (CLI) | payer MEDICARE, OTHER ==
[~2021-04-02] MED LIST changes: +CEFD300C3 PO
== END ==
LOC: WOUNDCARE 12:42
PROVIDERS: ATTEND Family Medicine
DX: E11.621 Type 2 diabetes mellitus with foot ulcer (principal); E11.65 Type 2 diabetes mellitus with hyperglycemia; E11.52 Type 2 diabetes mellitus with diabetic peripheral angiopathy with gangrene; L97.412 Non-pressure chronic ulcer of right heel and midfoot with fat layer exposed; E11.43 Type 2 diabetes mellitus with diabetic autonomic (poly)neuropathy; I70.234 Atherosclerosis of native arteries of right leg with ulceration of heel and midfoot; E11.22 Type 2 diabetes mellitus with diabetic chronic kidney disease; N18.6 End stage renal disease; S90.829A Blister (nonthermal), unspecified foot, initial encounter; I95.3 Hypotension of hemodialysis; I48.11 Longstanding persistent atrial fibrillation
CPT/HCPCS: 97597; A6197; A6212; G0463

== ENCOUNTER → 2021-04-03 | Outpatient (CLI) | payer MEDICARE, OTHER ==
--- NOTE | 2021-04-03 15:47 | Diagnostic Imaging Report ---
INDICATION: Follow-up left-sided infiltrate. Chest pain. COMPARISON: 03/29/2021. FINDINGS: Frontal and lateral radiographic views of the chest were obtained and show interval improved aeration of the left base. There is some residual patchy left basilar airspace opacity. No large effusion or pneumothorax is seen. Cardiac silhouette is enlarged. Pulmonary vasculature is within normal limits. Right internal jugular dual-lumen central venous catheter is seen with tip buckled in the right atrium. Left-sided AICD and sternotomy wires are also present. Osseous structures show no gross acute abnormality. IMPRESSION: 1. Overall improved aeration, but with persistent residual left basilar atelectasis and/or infiltrate. 2. Mild cardiomegaly. 3. Right internal jugular central venous catheter is buckled in the right atrium. Dictated by: Dictated on workstation # [id number]
== END ==
LOC: RAD 14:36
PROVIDERS: ATTEND Family Medicine
DX: I51.7 Cardiomegaly (principal); R91.8 Other nonspecific abnormal finding of lung field
CPT/HCPCS: 71046

== ENCOUNTER 2021-04-10 19:07 | Emergency (ER) | payer MEDICARE, OTHER ==
[~2021-04-10] VITALS: Ht 173 cm; Wt 83.0 kg
[2021-04-10] MEDS ORDERED: ONDANSETRON 4 MG/2 ML (SDV) Z0FRAN IVP ONE (19:30)
[2021-04-10 19:35] LABS: BASOPHILS # (AUTO) 0.1 10^3/uL (0.0-0.1); BASOPHILS % (AUTO) 1 % (0-10); EOSINOPHILS # (AUTO) 0.1 10^3/uL (0.0-0.3); EOSINOPHILS % (AUTO) 2 % (0-10); HEMATOCRIT 39 % (40-54); HEMOGLOBIN 12.4 g/dL (13.3-17.7); LYMPHOCYTES # (AUTO) 1.3 10^3/uL (1.0-4.0); LYMPHOCYTES % (AUTO) 16 % (12-44); MEAN CORPUSCULAR HEMOGLOBIN 32 pg (25-34); MEAN CORPUSCULAR HGB CONC 32 g/dL (32-36); MEAN CORPUSCULAR VOLUME 99 fL (80-99); MEAN PLATELET VOLUME 9.4 fL (9.0-12.2); MONOCYTES # (AUTO) 0.4 10^3/uL (0.0-1.0); MONOCYTES % (AUTO) 5 % (0-12); NEUTROPHILS # (AUTO) 6.3 10^3/uL (1.8-7.8); NEUTROPHILS % (AUTO) 77 % (42-75); PLATELET COUNT 154 10^3/uL (130-400); WHITE BLOOD COUNT 8.2 10^3/uL (4.3-11.0)
--- NOTE | 2021-04-10 19:44 | Diagnostic Imaging Report ---
INDICATION: 76-year-old male, chest pain. COMPARISONS: 03/29/2021 FINDINGS: Single chest shows the cardiac contour is upper limits normal. The left lung shows marked improvement in aeration compared to prior study. There continues be some mild central venous congestion and some minimal left basilar infiltrates. There is a previous mediasternotomy from CABG. There is a right IJ dialysis catheter stable. There is a dual-chamber left-sided pacer. Soft tissues and bony thorax unremarkable. IMPRESSION: 1. Borderline cardiomegaly with mild central venous congestion but overall markedly improved since the prior study. 2. There are minimal left basilar infiltrates once again overall significantly improved since the prior exam. 3. Right IJ dialysis catheter and the dual-chamber left-sided pacer is again noted. Dictated by: Dictated on workstation # [id number]
[2021-04-10 19:48] LABS: INR 1.3 (0.8-1.4); PROTHROMBIN TIME PATIENT 16.4 SEC (12.2-14.7)
[2021-04-10 19:50] LABS: ALBUMIN 2.5 GM/DL (3.2-4.5); BILIRUBIN,TOTAL 1.2 MG/DL (0.1-1.0); CALCIUM 7.7 MG/DL (8.5-10.1); CREATININE SERUM 1.9 MG/DL (0.60-1.30); MAGNESIUM 1.8 MG/DL (1.6-2.4); POTASSIUM 5.2 MMOL/L (3.6-5.0)
--- NOTE | 2021-04-10 23:57 | ED Syncope ---
General Chief Complaint: Neurological Problems Stated Complaint: SEIZURES Source of Information: Patient, EMS, Family Exam Limitations: No Limitations History of Present Illness Date Seen by Provider: Apr 10, 2021 Time Seen by Provider: 19:09 Initial Comments This 76-year-old gentleman presents to the emergency room via EMS after he had a reported unresponsive episode at home. He was sitting with his daughter when he suddenly stiffened, dropped his head backward and rolled his eyes back. The daughter reported he was unresponsive for up to 1 minute. Patient was alert for EMS and complained of nausea and vomiting. He was given Zofran 4 mg by EMS. He reports still feeling nauseous upon arrival. He did receive dialysis today. He recently had a dialysis fistula placed by Dr. Payne at [facility] on April 04. He presently receives dialysis through a dialysis catheter in the right chest. He has notable swelling, erythema, and pain of the left forearm and hand since surgery. He has the original dressing and OpSite on. The gauze under the OpSite is soaked with serosanguineous fluid. Patient denies any chest pain, shortness of breath, or lightheadedness today. He was not aware he lost consciousness during this event. Blood sugar was 160 for EMS. Patient's presume that he had a seizure. She reports he has had episodes like this in the past that were also presumed to be seizures. He did not have any convulsive activity. Allergies and Home Medications Allergies Coded Allergies: No Known Drug Allergies (Unverified , 12/15/08) Patient Home Medication List Home Medication List Reviewed: Yes Allopurinol (Allopurinol) 100 Mg Tablet, (Reported) Entered as Reported by: GLADYS BASURTO on 11/14/16436 Apixaban (Eliquis) 5 Mg Tablet, (Reported) Entered as Reported by: GLADYS BASURTO on 11/14/16436 Atorvastatin (Lipitor 20MG) 20 Mg Tablet, 20 MG PO HS, (Reported) Entered as Reported by: LEONEL REILLY on 12/15/08 0851 Bumetanide (Bumetanide) 2 Mg Tablet, (Reported) Entered as Reported by: GLADYS BASURTO on 11/14/16436 Carvedilol (Carvedilol) 3.125 Mg Tablet, (Reported) Entered as Reported by: GLADYS BASURTO on 11/14/16436 Cefdinir (Cefdinir) 300 Mg Capsule, 300 MG PO DAILY Prescribed by: KASHIF PORTILLO on 03/29/21 1359 Clopidogrel Bisulfate (Plavix 75 Mg) 75 Mg Tablet, 75 MG PO DAILY, (Reported) Entered as Reported by: LEONEL REILLY on 12/15/08 0852 Diclofenac Sodium (Voltaren) 100 Gm Gel..gram., 100 GM TP, (Reported) Entered as Reported by: GLADYS BASURTO on 11/14/16436 Ferrous Sulfate (Ferosul) 325 Mg Tablet, 325 MG PO, (Reported) Entered as Reported by: GLADYS BASURTO on 11/14/16436 Gabapentin (Gabapentin) 100 Mg Capsule, (Reported) Entered as Reported by: GLADYS BASURTO on 11/14/16436 Hydralazine HCl (Hydralazine HCl) 25 Mg Tablet, (Reported) Entered as Reported by: GLADYS BASURTO on 11/14/16436 Insulin Aspart (Novolog Flexpen) 300 Units/3 Ml Solution, (Reported) Entered as Reported by: GLADYS BASURTO on 11/14/16436 Insulin Glargine,Hum.rec.anlog (Lantus Solostar) 100 Unit/1 Ml Insuln.pen, (Reported) Entered as Reported by: GLADYS BASURTO on 11/14/16436 Levofloxacin (Levaquin) 250 Mg Tablet, 250 MG PO Q48H Prescribed by: RASHEED TERRY on 01/22/17 2320 Metoprolol Succinate (Toprol Xl) 50 Mg Tab, 100 MG PO DAILY, (Reported) Entered as Reported by: LEONEL REILLY on 12/15/08 0852 Polyethylene Glycol 3350 (Miralax) 17 Gm Powd.pack, 17 GM PO BID Prescribed by: KASHIF PORTILLO on 02/26/21 1551 Potassium Chloride (Klor-Con M20) 20 Meq Tab.er.prt, (Reported) Entered as Reported by: GLADYS BASURTO on 11/14/16436 Sertraline HCl (Sertraline HCl) 50 Mg Tablet, (Reported) Entered as Reported by: GLADYS BASURTO on 11/14/16436 Sildenafil Citrate (Sildenafil) 20 Mg Tablet, (Reported) Entered as Reported by: GLADYS BASURTO on 11/14/16436 Review of Systems Constitutional: see HPI EENTM: see HPI Respiratory: no symptoms reported Cardiovascular: see HPI Gastrointestinal: see HPI Genitourinary: see HPI Musculoskeletal: no symptoms reported Skin: no symptoms reported Psychiatric/Neurological: See HPI Past Ulvfhni-Tliwse-Muhcsz Hx Patient Social History Tobacco Use?: No Use of E-Cig and/or Vaping dev: No Substance use?: No Alcohol Use?: No Pt feels they are or have been: No Immunizations Up To Date First/Initial COVID19 Vaccinat: X1 UNKNOWN COVID19 Vaccine Wind Field Manager: UNKNOWN Seasonal Allergies Seasonal Allergies: No Past Medical History Surgery/Hospitalization HX: STAGE 4 CKD, CHF, DM DEFIBRILATOR ([facility] 2017) Surgeries: Yes (4 VESSEL CABG; 14 STENTS; KIDNEY STONE REMOVAL; COLONOSCOPY/EGD) Abdominal, Cardiac, CABG, Coronary Stent, Defibrillator, Gallbladder Respiratory: Yes (PULMONARY FIBROSIS) Cardiac: Yes (CHF; 4 VESSEL CABG; 14 STENTS) Atrial Fibrillation, Chronic Edema/Swelling, Coronary Artery Disease, High Cholesterol, Hypertension Neurological: No Reproductive Disorders: No Sexually Transmitted Disease: No Genitourinary: Yes (NO DIALYSIS OF 11/14/16) Kidney Stones, Renal Failure Gastrointestinal: Yes Gall Bladder Disease Musculoskeletal: Yes (LEFT SHOULDER) Endocrine: Yes Diabetes, Insulin dep HEENT: No Cancer: No Psychosocial: No Integumentary: No Blood Disorders: Yes (ANEMIA) Physical Exam Vital Signs Vital Signs - First Documented 04/10/21 19:10 Temp 35.3 Pulse 92 Resp 20 B/P (MAP) 102/66 (78) Pulse Ox 97 O2 Delivery Room Air Capillary Refill : Height, Weight, BMI Height: 5'8.00" Weight: 205lbs. 0oz. 92.707207cm; 27.00 BMI Method:Stated General Appearance: WD/WN, Mild Distress HEENT: PERRL/EOMI, Normal ENT Inspection Neck: Normal Inspection Cardiovascular: Regular Rate, Rhythm, No Edema, No Murmur Respiratory: Lungs Clear, Normal Breath Sounds, No Respiratory Distress Gastrointestinal: Normal Bowel Sounds, Non Tender, Soft Extremities: Other (Notable swelling, bruising, and erythema of the left arm with the OpSite dressings intact. Gauze beneath the OpSite is saturated with serosanguineous fluid) Neurologic/Psychiatric: Alert, Oriented x3, No Motor/Sensory Deficits, features editor II- XII Norm as Tested Cranial Nerves: Normal Hearing, Normal Speech, PERRL Motor/Sensory: No Motor Deficit, No Sensory Deficit Skin: Normal Color, Warm/Dry, Ecchymosis, Erythema Progress/Results/Core Measures Results/Orders Lab Results Laboratory Tests Test 04/10/21 19:25 04/10/21 22:31 Range/Units White Blood Count 8.2 4.3-11.0 10^3/uL Red Blood Count 3.92 L 4.30-5.52 10^6/uL Hemoglobin 12.4 L 13.3-17.7 g/dL Hematocrit 39 L 40-54 % Mean Corpuscular Volume 99 80-99 fL Mean Corpuscular Hemoglobin 32 25-34 pg Mean Corpuscular Hemoglobin Concent 32 32-36 g/dL Red Cell Distribution Width 17.7 H 10.0-14.5 % Platelet Count 154 130-400 10^3/uL Mean Platelet Volume 9.4 9.0-12.2 fL Immature Granulocyte % (Auto) 0 % Neutrophils (%) (Auto) 77 H 42-75 % Lymphocytes (%) (Auto) 16 12-44 % Monocytes (%) (Auto) 5 0-12 % Eosinophils (%) (Auto) 2 0-10 % Basophils (%) (Auto) 1 0-10 % Neutrophils # (Auto) 6.3 1.8-7.8 10^3/uL Lymphocytes # (Auto) 1.3 1.0-4.0 10^3/uL Monocytes # (Auto) 0.4 0.0-1.0 10^3/uL Eosinophils # (Auto) 0.1 0.0-0.3 10^3/uL Basophils # (Auto) 0.1 0.0-0.1 10^3/uL Immature Granulocyte # (Auto) 0.0 0.0-0.1 10^3/uL Prothrombin Time 16.4 H 12.2-14.7 SEC INR Comment 1.3 0.8-1.4 Activated Partial Thromboplast Time 38 H 24-35 SEC Sodium Level 136 135-145 MMOL/L Potassium Level 5.2 H 3.6-5.0 MMOL/L Chloride Level 104 98-107 MMOL/L Carbon Dioxide Level 21 21-32 MMOL/L Anion Gap 11 5-14 MMOL/L Blood Urea Nitrogen 13 7-18 MG/DL Creatinine 1.90 H 0.60-1.30 MG/DL Estimat Glomerular Filtration Rate 36 BUN/Creatinine Ratio 7 Glucose Level 128 H 70-105 MG/DL Calcium Level 7.7 L 8.5-10.1 MG/DL Corrected Calcium 8.9 8.5-10.1 MG/DL Magnesium Level 1.8 1.6-2.4 MG/DL Total Bilirubin 1.2 H 0.1-1.0 MG/DL Aspartate Amino Transf (AST/SGOT) 47 H 5-34 U/L Alanine Aminotransferase (ALT/SGPT) 12 0-55 U/L Alkaline Phosphatase 147 H 40-136 U/L Myoglobin 260.6 H 10.0-92.0 NG/ML Troponin I 0.054 H 0.057 H <0.028 NG/ML C-Reactive Protein High Sensitivity 1.17 H 0.00-0.50 MG/DL Total Protein 6.0 L 6.4-8.2 GM/DL Albumin 2.5 L 3.2-4.5 GM/DL Procalcitonin 0.32 H <0.10 NG/ML My Orders Orders - PROMISE COHEN MD Cbc With Automated Diff (04/10/21 19:21) Magnesium (04/10/21 19:21) Chest 1 View, Ap/Pa Only (04/10/21 19:21) Ekg Tracing (04/10/21 19:21) Comprehensive Metabolic Panel (04/10/21 19:21) Myoglobin Serum (04/10/21 19:21) Protime With Inr (04/10/21 19:21) Partial Thromboplastin Time (04/10/21 19:21) O2 (04/10/21 19:21) Monitor-Rhythm Ecg Trace Only (04/10/21 19:21) Ed Iv/Invasive Line Start (04/10/21 19:21) Troponin I [place] (04/10/21 19:21) Ondansetron Injection (Zofran Injectio (04/10/21 19:30) Ua Culture If Indicated (04/10/21 19:22) Hs C Reactive Protein (04/10/21 19:24) Procalcitonin (Pct) (04/10/21 19:24) Troponin I [place] (04/10/21 21:25) Ekg Tracing (04/10/21 21:26) Amiodarone Tablet (Cordarone Tablet) (04/11/21 00:00) Doxycycline Hyclate Tablet (Vibramycin T (04/11/21 00:15) Medications Given in ED Current Medications Medications Dose Ordered Sig/Bobo Route Start Time Stop Time Status Last Admin Dose Admin Amiodarone HCl 400 mg ONCE ONCE PO 04/11/21 00:00 04/11/21 00:02 DC 04/11/21 00:31 400 MG Doxycycline Hyclate 100 mg ONCE ONCE PO 04/11/21 00:15 04/11/21 00:16 DC 04/11/21 00:29 100 MG Ondansetron HCl 4 mg ONCE ONCE IVP 04/10/21 19:30 04/10/21 19:31 DC 04/10/21 19:36 4 MG Vital Signs/I&O 04/10/21 19:10 Temp 35.3 Pulse 92 Resp 20 B/P (MAP) 102/66 (78) Pulse Ox 97 O2 Delivery Room Air 04/11/21 00:00 Intake Total 0 ml Balance 0 ml Progress Progress Note : Progress Note Patient received an additional dose of Zofran to control his nausea. Work-up was pursued. Troponin was slightly elevated and repeated at 2 hours. There was no significant delta in the troponin value. Initial EKG was reported as "acute ischemia" by the automated read. However, when compared with prior, there is no significant change. Patient denied any chest pain at home or in the ER. Labs were fairly unremarkable for a dialysis patient. His device was interrogated. I discussed the results with the [employer] cash application representative. There appeared to be an episode of ventricular tachycardia with a heart rate around 194 lasting 41 seconds. The timing of this event was marked as 21:25, but the cash application representative notes that his device seems to be ahead about 3 hours. When subtracting [address] the time of the event at roughly the time of his syncopal episode. It is presumed his syncope was caused by this episode of VT. Dr. Hatch at [facility] was consulted at 23:40. He recommends initiating amiodarone therapy with an initial dose of 400 mg orally now. Due to the concerning cardiac history and the possible syncope associated with a VT episode, Dr. Hatch recommends transfer to [facility] for further evaluation. The last dose of Eliquis was this morning. Dr. Hatch did not advise giving any further anticoagulation in anticipation of possible need for procedural interventions. Admission was accepted by the hospitalist, Dr. Best. Patient's op sites were removed, skin cleaned with chlorhexidine wipes, and redressed with gauze wrap. Doxycycline was given orally due to concern for p ossible infection at the site. The skin surrounding the incisions was markedly erythematous. Neither patient's labs nor vital signs suggested sepsis. EKG #1: EKG Time: 19:35 Rate: 94 Comment Ventricular paced complexes. Automated read reports "acute ischemia". However, the appearance of this EKG is similar to prior and does not show any notable dynamic change. EKG #2: EKG Time: 22:12 Rate: 96 Comment Ventricular paced complexes with no acute ischemic changes. Diagnostic Imaging Diagonstic Imaging: Xray Plain Films/CT/US/NM/MRI: chest Comments NAME: LANA BARRAZA MED REC#: [id number] PT STATUS: REG ER : 1945 PHYSICIAN: PROMISE COHEN MD ADMIT DATE: 04/10/21/ER Signed Date of Exam:04/10/21 CHEST 1 VIEW, AP/PA ONLY INDICATION: 76-year-old male, chest pain. COMPARISONS: 03/29/2021 FINDINGS: Single chest shows the cardiac contour is upper limits normal. The left lung shows marked improvement in aeration compared to prior study. There continues be some mild central venous congestion and some minimal left basilar infiltrates. There is a previous mediasternotomy from CABG. There is a right IJ dialysis catheter stable. There is a dual-chamber left-sided pacer. Soft tissues and bony thorax unremarkable. IMPRESSION: 1. Borderline cardiomegaly with mild central venous congestion but overall markedly improved since the prior study. 2. There are minimal left basilar infiltrates once again overall significantly improved since the prior exam. 3. Right IJ dialysis catheter and the dual-chamber left-sided pacer is again noted. Dictated by: Dictated on workstation # [id number] Dict: 04/10/211940 Trans: 04/10/211945 CVB [id number] Interpreted by: FIDEL FREDERICK MD Electronically signed by: FIDEL FREDERICK MD 04/10/211945 Departure Impression Primary Impression: Ventricular tachycardia Additional Impressions: Syncope Qualified Codes: R55 - Syncope and collapse End stage renal failure on dialysis Nausea and vomiting Qualified Codes: R11.2 - Nausea with vomiting, unspecified Post-op pain Disposition: XF [facility] HOSP Condition: Stable Transfer Transfer Reason: Exceeds level of care Time Spoke to Accepting Phy: 00:00 Transfer Progress Notes Discussed with Dr. Hatch at [facility] in [place]. He recommended admission. Admission was accepted by Dr. Best, hospitalist Transfer Time: 01:45 Transfer Facility: [facility] Method of Transfer: EMS Departure-Patient Inst. Referrals: CHARLENE STRONG MD (PCP/Family) Primary Care Physician PROMISE COHEN MD Apr 10, 2021 23:57
[2021-04-11] MEDS ORDERED: AMIODARONE 200 MG (CORDARONE) TAB PO ONE
[2021-04-11] MEDS ORDERED: DOXYCYCLINE 100 MG (VIBRAMYCIN) TABLET PO ONE (00:15)
[2021-04-11 01:45] VITALS: BP 108/65
== END 2021-04-11 01:45 | disposition short-term general hospital (02) ==
LOC: EDUNIT# 19:07 → ER 19:09
DX: I47.2 Ventricular tachycardia (principal); R55 Syncope and collapse; E11.22 Type 2 diabetes mellitus with diabetic chronic kidney disease; I13.2 Hypertensive heart and chronic kidney disease with heart failure and with stage 5 chronic kidney disease, or end stage renal disease; I50.9 Heart failure, unspecified; N18.6 End stage renal disease; G89.18 Other acute postprocedural pain; E78.00 Pure hypercholesterolemia, unspecified; I48.91 Unspecified atrial fibrillation; I25.10 Atherosclerotic heart disease of native coronary artery without angina pectoris; Z79.4 Long term (current) use of insulin; Z79.01 Long term (current) use of anticoagulants; Z79.899 Other long term (current) drug therapy
CPT/HCPCS: 36415; 71045; 80053; 83735; 83874; 84145; 84484; 85025; 85610; 85730; 86141; 93005; 93041

== ENCOUNTER → 2021-04-16 | Outpatient (CLI) | payer MEDICARE, OTHER | LOC: WOUNDCARE 12:55 | PROVIDERS: ATTEND Family Medicine | DX: E11.52 Type 2 diabetes mellitus with diabetic peripheral angiopathy with gangrene (principal); E11.65 Type 2 diabetes mellitus with hyperglycemia; E11.43 Type 2 diabetes mellitus with diabetic autonomic (poly)neuropathy; E11.621 Type 2 diabetes mellitus with foot ulcer; E11.22 Type 2 diabetes mellitus with diabetic chronic kidney disease; I70.261 Atherosclerosis of native arteries of extremities with gangrene, right leg; N18.6 End stage renal disease; L97.412 Non-pressure chronic ulcer of right heel and midfoot with fat layer exposed; S90.829A Blister (nonthermal), unspecified foot, initial encounter; I48.11 Longstanding persistent atrial fibrillation; L97.221 Non-pressure chronic ulcer of left calf limited to breakdown of skin | CPT/HCPCS: 87070; 87205; G0463; 87077; 99214 ==

== ENCOUNTER 2021-04-19 11:43 | Emergency (ER) | payer MEDICARE, OTHER ==
[~2021-04-19] VITALS: Ht 175.3 cm; Wt 84.3 kg
[2021-04-19] MEDS ORDERED: AMIODARONE (BOLUS) 150 MG/3 ML IV ONE (11:45)
[2021-04-19] MEDS ORDERED: AMIODARONE INJECTION 450 MG in D5W IV SOLUTION (EXCEL) 250 ML IV SCH ×2 (12:00→12:30)
--- NOTE | 2021-04-19 12:13 | ED CPR ---
HPI-CPR General Chief Complaint: Code Blue Stated Complaint: POST CODE Nursing Triage Note: PT TO RM 2 VIA [facility] FROM DIALYSIS. EMS REPORTS AT DIALYSIS STAFF HEARD PT SCREAM, WHEN STAFF GOT TO PT HE WAS UNRESPONSIVE NOT BREATHING, STAFF HOOKED PT UP TO THEIR AED, SHOCKED PT 2X. PT ALERT UPON ARRIVAL TO HOSPITAL, ABLE TO ANSWER TRIAGE QUESTIONS. PT DEFIB SHOCKED 2X DURING TRIAGE. PT DENIES PAIN AT THIS TIME, STATES "I JUST FEEL TERRIBLE." PT ARRIVED W BANDAGE ON L LOWER EXT AND BANDAGE TO L ARM. Source of Information: Patient Exam Limitations: No Limitations History of Present Illness Date Seen by Provider: Apr 19, 2021 Time Seen by Provider: 12:08 Initial Comments To ER by EMS from [facility]. He was 1 hour into his dialysis treatment when he screamed and nearly jumped out of his chair (presumed to be his ICD discharge). He then had an AED applied which shocked him twice. CPR was briefly initiated by staff. On arrival to ER he is alert, states that he feels "terrible" and nauseated. He denies pain anywhere. Reportedly, he was here last week for similar, episodes of V. tach and transferred to [facility]. Initial Complaints: Collapsed Witnessed Arrest: Yes Bystander CPR: Yes Paramedics Initial Findings: No Pulse Pre Hospital Treatment: Defibrillation Allergies and Home Medications Allergies Coded Allergies: No Known Drug Allergies (Unverified , 12/15/08) Patient Home Medication List Home Medication List Reviewed: Yes Allopurinol (Allopurinol) 100 Mg Tablet, (Reported) Entered as Reported by: GLADYS BASURTO on 11/14/16436 Apixaban (Eliquis) 5 Mg Tablet, (Reported) Entered as Reported by: GLADYS BASURTO on 11/14/16436 Atorvastatin (Lipitor 20MG) 20 Mg Tablet, 20 MG PO HS, (Reported) Entered as Reported by: LEONEL REILLY on 12/15/08 0851 Bumetanide (Bumetanide) 2 Mg Tablet, (Reported) Entered as Reported by: GLADYS BASURTO on 11/14/16436 Carvedilol (Carvedilol) 3.125 Mg Tablet, (Reported) Entered as Reported by: GLADYS BASURTO on 11/14/16436 Cefdinir (Cefdinir) 300 Mg Capsule, 300 MG PO DAILY Prescribed by: KASHIF PORTILLO on 03/29/21 1359 Clopidogrel Bisulfate (Plavix 75 Mg) 75 Mg Tablet, 75 MG PO DAILY, (Reported) Entered as Reported by: LEONEL REILLY on 12/15/08 0852 Diclofenac Sodium (Voltaren) 100 Gm Gel..gram., 100 GM TP, (Reported) Entered as Reported by: GLADYS BASURTO on 11/14/16436 Ferrous Sulfate (Ferosul) 325 Mg Tablet, 325 MG PO, (Reported) Entered as Reported by: GLADYS BASURTO on 11/14/16436 Gabapentin (Gabapentin) 100 Mg Capsule, (Reported) Entered as Reported by: GLADYS BASURTO on 11/14/16436 Hydralazine HCl (Hydralazine HCl) 25 Mg Tablet, (Reported) Entered as Reported by: GLADYS BASURTO on 11/14/16436 Insulin Aspart (Novolog Flexpen) 300 Units/3 Ml Solution, (Reported) Entered as Reported by: GLADYS BASURTO on 11/14/16436 Insulin Glargine,Hum.rec.anlog (Lantus Solostar) 100 Unit/1 Ml Insuln.pen, (Reported) Entered as Reported by: GLADYS BAUSRTO on 11/14/16436 Levofloxacin (Levaquin) 250 Mg Tablet, 250 MG PO Q48H Prescribed by: RASHEED TERRY on 01/22/17 2320 Metoprolol Succinate (Toprol Xl) 50 Mg Tab, 100 MG PO DAILY, (Reported) Entered as Reported by: LEONEL REILLY on 12/15/08 0852 Polyethylene Glycol 3350 (Miralax) 17 Gm Powd.pack, 17 GM PO BID Prescribed by: KASHIF PORTILLO on 02/26/21 1551 Potassium Chloride (Klor-Con M20) 20 Meq Tab.er.prt, (Reported) Entered as Reported by: GLADYS BASURTO on 11/14/16436 Sertraline HCl (Sertraline HCl) 50 Mg Tablet, (Reported) Entered as Reported by: GLADYS BASURTO on 11/14/16436 Sildenafil Citrate (Sildenafil) 20 Mg Tablet, (Reported) Entered as Reported by: GLADYS BASURTO on 11/14/16436 Review of Systems Review of Systems Constitutional: see HPI EENTM: No Symptoms Reported Respiratory: No Symptoms Reported Cardiovascular: No Symptoms Reported Gastrointestinal: See HPI, Nausea Genitourinary: No Symptoms Reported Musculoskeletal: no symptoms reported Skin: no symptoms reported Psychiatric/Neurological: No Symptoms Reported Endocrine: No Symptoms Reported Past Fupsqqa-Agckhe-Zsmeso Hx Patient Social History Tobacco Use?: No Use of E-Cig and/or Vaping dev: No Substance use?: No Alcohol Use?: No Immunizations Up To Date First/Initial COVID19 Vaccinat: X1 UNKNOWN Second COVID19 Vaccination Denis: X2 UNKNOWN COVID19 Vaccine Community Development Specialist: UNK TO PT Seasonal Allergies Seasonal Allergies: No Past Medical History Surgery/Hospitalization HX: STAGE 4 CKD, CHF, DM DEFIBRILATOR ([employer] 2017) Surgeries: Yes (4 VESSEL CABG; 14 STENTS; KIDNEY STONE REMOVAL; COLONOSCOPY/EGD) Abdominal, Cardiac, CABG, Coronary Stent, Defibrillator, Gallbladder Respiratory: Yes (PULMONARY FIBROSIS) Cardiac: Yes (CHF; 4 VESSEL CABG; 14 STENTS) Atrial Fibrillation, Chronic Edema/Swelling, Coronary Artery Disease, High Cholesterol, Hypertension Neurological: No Reproductive Disorders: No Sexually Transmitted Disease: No Genitourinary: Yes (NO DIALYSIS OF 11/14/16) Kidney Stones, Renal Failure Gastrointestinal: Yes Gall Bladder Disease Musculoskeletal: Yes (LEFT SHOULDER) Endocrine: Yes Diabetes, Insulin dep HEENT: No Cancer: No Psychosocial: No Integumentary: No Blood Disorders: Yes (ANEMIA) Physical Exam Vital Signs Vital Signs - First Documented 04/19/21 04/19/21 11:44 14:01 Temp 35.6 Pulse 75 Resp 18 B/P (MAP) 112/69 (83) Pulse Ox 94 O2 Delivery Room Air O2 Flow Rate 5.00 Capillary Refill : Less Than 3 Seconds Height, Weight, BMI Height: 5'8.00" Weight: 205lbs. 0oz. [id number]; 27.00 BMI Method:Stated General Appearance: Chronically ill, Other (Blood pressure 110/69 on arrival here. Heart rate 75 sinus. Oxygen 94% on 5 L per nasal cannula. Lethargic and poorly responsive on arrival. Hemodialysis tunneled catheter to the right anterior chest wall. Weeping wounds to the left forearm. Given 8 mg of Zofran here then 150 mg IV amiodarone.) Neck: Full Range of Motion, Normal Inspection Respiratory: Normal Breath Sounds, No Accessory Muscle Use, No Respiratory Distress Cardiovascular: Regular Rate, Rhythm, Normal Peripheral Pulses Gastrointestinal: Normal Bowel Sounds, Non Tender, Soft Extremity: Normal Capillary Refill, Other (edema most pronounced to LUE) Neurologic/Psychiatric: Oriented x3 (Answers questions appropriately) Skin: Normal Color, Warm/Dry Progress/Results/Core Measures Results/Orders Lab Results Laboratory Tests Test 04/19/21 12:00 04/19/21 12:33 Range/Units White Blood Count 11.0 4.3-11.0 10^3/uL Red Blood Count 3.77 L 4.30-5.52 10^6/uL Hemoglobin 11.9 L 13.3-17.7 g/dL Hematocrit 38 L 40-54 % Mean Corpuscular Volume 101 H 80-99 fL Mean Corpuscular Hemoglobin 32 25-34 pg Mean Corpuscular Hemoglobin Concent 31 L 32-36 g/dL Red Cell Distribution Width 17.9 H 10.0-14.5 % Platelet Count 141 130-400 10^3/uL Mean Platelet Volume 9.7 9.0-12.2 fL Immature Granulocyte % (Auto) 1 % Neutrophils (%) (Auto) 80 H 42-75 % Lymphocytes (%) (Auto) 13 12-44 % Monocytes (%) (Auto) 5 0-12 % Eosinophils (%) (Auto) 1 0-10 % Basophils (%) (Auto) 1 0-10 % Neutrophils # (Auto) 8.8 H 1.8-7.8 10^3/uL Lymphocytes # (Auto) 1.4 1.0-4.0 10^3/uL Monocytes # (Auto) 0.6 0.0-1.0 10^3/uL Eosinophils # (Auto) 0.1 0.0-0.3 10^3/uL Basophils # (Auto) 0.1 0.0-0.1 10^3/uL Immature Granulocyte # (Auto) 0.1 0.0-0.1 10^3/uL Sodium Level 131 L 135-145 MMOL/L Potassium Level 4.1 3.6-5.0 MMOL/L Chloride Level 102 98-107 MMOL/L Carbon Dioxide Level 18 L 21-32 MMOL/L Anion Gap 11 5-14 MMOL/L Blood Urea Nitrogen 19 H 7-18 MG/DL Creatinine 2.49 H 0.60-1.30 MG/DL Estimat Glomerular Filtration Rate 26 BUN/Creatinine Ratio 8 Glucose Level 210 H 70-105 MG/DL Calcium Level 7.8 L 8.5-10.1 MG/DL Corrected Calcium 9.2 8.5-10.1 MG/DL Phosphorus Level 2.9 2.3-4.7 MG/DL Magnesium Level 2.0 1.6-2.4 MG/DL Total Bilirubin 1.1 H 0.1-1.0 MG/DL Aspartate Amino Transf (AST/SGOT) 28 5-34 U/L Alanine Aminotransferase (ALT/SGPT) 16 0-55 U/L Alkaline Phosphatase 133 40-136 U/L Troponin I < 0.028 <0.028 NG/ML Total Protein 4.8 L 6.4-8.2 GM/DL Albumin 2.2 L 3.2-4.5 GM/DL SARS-CoV-2 RNA (RT-PCR) Not Detected Not Detecte My Orders Orders - KASHIF PORTILLO APRN Arterial Blood Gas (04/19/21 12:18) Amiodarone Injection (Cordarone Injectio (04/19/21 12:30) Covid 19 Inhouse Test (04/19/21 12:20) Promethazine Injection (Phenergan Injec (04/19/21 12:30) Ondansetron Injection (Zofran Injectio (04/19/21 12:30) Promethazine Injection (Phenergan Injec (04/19/21 14:00) Medications Given in ED Current Medications Medications Dose Ordered Sig/Bobo Route Start Time Stop Time Status Last Admin Dose Admin Ondansetron HCl 8 mg ONCE ONCE IVP 04/19/21 12:30 04/19/21 12:31 DC 04/19/21 11:49 8 MG Promethazine HCl 12.5 mg ONCE ONCE IVP 04/19/21 12:30 04/19/21 12:31 DC 04/19/21 12:34 12.5 MG Vital Signs/I&O 04/19/21 04/19/21 04/19/21 11:44 14:01 14:28 Temp 35.6 Pulse 75 75 75 Resp 18 16 16 B/P (MAP) 112/69 (83) 123/56 119/79 Pulse Ox 94 100 100 O2 Delivery Room Air Nasal Cannula Nasal Cannula O2 Flow Rate 5.00 6.00 Blood Pressure Mean: 83 Diagnostic Imaging Diagonstic Imaging: Xray Comments NAME: LANA BARRAZA [facility] REC#: [id number] PT STATUS: REG ER : 1945 PHYSICIAN: KINGA LOWRY MD ADMIT DATE: 04/19/21/ER Draft Date of Exam:04/19/21 CHEST 1 VIEW, AP/PA ONLY INDICATION: Chest discomfort, firing of defibrillator device. TECHNIQUE/COMPARISON: A frontal chest was obtained at 12:18 PM and compared to 04/10/2021. FINDINGS: There is cardiomegaly and post sternotomy change. The pacemaker defibrillator device is unchanged. The right IJ dual-lumen catheter is also unchanged. There is no pneumothorax, pleural fluid, or focal infiltrate. IMPRESSION: Cardiomegaly and post operative changes as above with no acute appearing abnormality. Dictated on workstation # [id number] Dict: 04/19/21 1235 Trans: 04/19/21 1238 [id number] Interpreted by: PASCUAL BROWN MD Electronically signed by: Departure Communication (Admissions) 1215-I did discuss CODE STATUS with him again. I asked him if his heart were to stop does he want resuscitated and he replies yes. Due to poor venous access I did start a right femoral triple-lumen. He received 150 mg bolus amiodarone and a drip was started. 1223-still vomiting. 12.5 mg Phenergan ordered. 1231-EKG shows ventricular paced complexes at [address] segment changes are seen. In comparison to his EKG on 04/10/2021 there is loss of amplitude of the QRS complexes. ? Developing pericardial effusion 1252-heart rate 75 still sinus. Respiratory rate 18 oxygen 100% on 5 L. Blood pressure 102/68. Amiodarone drip infusing at 1 mg/h. Not requiring any pressors. Spoke with Dr. Carney from intensive care at [facility] who accepts the patient. Once we get a bed number all transport via air to minimize out of hospital time. 1432-patient's daughter is upset that his clothing was cut off of him on arrival. was concerned that the EKG patches might cause his skin to break out. I do not feel the family grasps the poor prognosis or understands the significance of 3 defibrillations today. Impression Primary Impression: Ventricular tachycardia Additional Impression: End stage renal failure on dialysis Disposition: 02 XFER SHT-TRM HOSP Condition: Stable Transfer Transfer Reason: Exceeds level of care Time Spoke to Accepting Phy: 12:14 Departure-Patient Inst. Referrals: CHARLENE STRONG MD (PCP/Family) Primary Care Physician KASHIF PORTILLO APRN Apr 19, 2021 12:13
[2021-04-19 12:15] LABS: BASOPHILS # (AUTO) 0.1 10^3/uL (0.0-0.1); BASOPHILS % (AUTO) 1 % (0-10); EOSINOPHILS # (AUTO) 0.1 10^3/uL (0.0-0.3); EOSINOPHILS % (AUTO) 1 % (0-10); HEMATOCRIT 38 % (40-54); HEMOGLOBIN 11.9 g/dL (13.3-17.7); LYMPHOCYTES # (AUTO) 1.4 10^3/uL (1.0-4.0); LYMPHOCYTES % (AUTO) 13 % (12-44); MEAN CORPUSCULAR HEMOGLOBIN 32 pg (25-34); MEAN CORPUSCULAR HGB CONC 31 g/dL (32-36); MEAN CORPUSCULAR VOLUME 101 fL (80-99); MEAN PLATELET VOLUME 9.7 fL (9.0-12.2); MONOCYTES # (AUTO) 0.6 10^3/uL (0.0-1.0); MONOCYTES % (AUTO) 5 % (0-12); NEUTROPHILS # (AUTO) 8.8 10^3/uL (1.8-7.8); NEUTROPHILS % (AUTO) 80 % (42-75); PLATELET COUNT 141 10^3/uL (130-400)
[2021-04-19 12:26] LABS: ALBUMIN 2.2 GM/DL (3.2-4.5); CHLORIDE 102 MMOL/L (98-107); POTASSIUM 4.1 MMOL/L (3.6-5.0); SODIUM 131 MMOL/L (135-145)
[2021-04-19 12:27] LABS: CALCIUM 7.8 MG/DL (8.5-10.1)
[2021-04-19 12:29] LABS: GLUCOSE 210 MG/DL (70-105); TOTAL PROTEIN 4.8 GM/DL (6.4-8.2)
[2021-04-19 12:30] LABS: BILIRUBIN,TOTAL 1.1 MG/DL (0.1-1.0); CARBON DIOXIDE 18 MMOL/L (21-32)
[2021-04-19] MEDS ORDERED: ONDANSETRON 4 MG/2 ML (SDV) Z0FRAN IVP ONE (12:30)
[2021-04-19] MEDS ORDERED: PROMETHAZINE INJ 25 MG/ML (PHENERGAN) AMP IVP ONE ×2 (12:30→14:00)
[2021-04-19 12:32] LABS: ALKALINE PHOSPHATASE 133 U/L (40-136); CREATININE SERUM 2.49 MG/DL (0.60-1.30); GFR ESTIMATED 26; PHOSPHORUS 2.9 MG/DL (2.3-4.7)
[2021-04-19 12:33] LABS: BUN/CREATININE RATIO 8
[2021-04-19 12:35] LABS: ALANINE AMINOTRANSFERASE 16 U/L (0-55)
--- NOTE | 2021-04-19 12:39 | Diagnostic Imaging Report ---
INDICATION: Chest discomfort, firing of defibrillator device. TECHNIQUE/COMPARISON: A frontal chest was obtained at 12:18 PM and compared to 04/10/2021. FINDINGS: There is cardiomegaly and post sternotomy change. The pacemaker defibrillator device is unchanged. The right IJ dual-lumen catheter is also unchanged. There is no pneumothorax, pleural fluid, or focal infiltrate. IMPRESSION: Cardiomegaly and post operative changes as above with no acute appearing abnormality. Dictated by: Dictated on workstation # [id number]
[2021-04-19 14:28] VITALS: BP 119/79
== END 2021-04-19 14:28 | disposition short-term general hospital (02) ==
LOC: EDUNIT# 11:43 → ER 11:44
DX: I47.2 Ventricular tachycardia (principal); N18.6 End stage renal disease; Z20.822 Contact with and (suspected) exposure to COVID-19
CPT/HCPCS: 36415; 71045; 80053; 82947; 83735; 84100; 84484; 85025; 87636; 93005